=== PATIENT | female | born 1975 | race African-American/Black ===

== ENCOUNTER → 2021-07-05 12:16 | Outpatient (CLI) | payer OTHER, SELFPAY ==
--- NOTE | 2021-07-05 | DI.MG.S_ITS ---
BILATERAL DIGITAL SCREENING MAMMOGRAM 3D/2D WITH CAD: 07/05/2021 CLINICAL: Routine screening. Baseline exam. No prior exams were available for comparison. The tissue of both breasts is heterogeneously dense. This may lower the sensitivity of mammography. Current study was also evaluated with a Computer Aided Detection (CAD) system. There is a possible oval focal asymmetry in the right breast at 9 o'clock posterior depth. No other significant masses, calcifications, or other findings are seen in either breast. IMPRESSION: INCOMPLETE: NEEDS ADDITIONAL IMAGING EVALUATION The possible oval focal asymmetry in the right breast is indeterminate. A diagnostic mammogram and ultrasound is recommended. This exam was interpreted at Station ID: [id number]. NOTE: For mammograms, a report in lay terms will be sent to the patient. Approximately 15% of breast malignancies will not be visualized mammographically. In the management of a palpable breast mass, a negative mammogram must not discourage biopsy of a clinically suspicious lesion. Electronically Signed By: Pardeep pelayo/ridge:07/05/2021 13:03:51 letter sent: Additional Imaging Needed ACR BI-RADS Category 0: Incomplete 3340F
== END ==
PROVIDERS: PCP Family Medicine; Referring Provider Family Medicine; Visit Provider Family Medicine
DX: Z12.31 Encounter for screening mammogram for malignant neoplasm of breast (principal)
CPT/HCPCS: 77063; 77067

== ENCOUNTER → 2021-08-25 14:06 | Outpatient (CLI) | payer OTHER, SELFPAY ==
--- NOTE | 2021-08-25 | DI.MG.S_ITS ---
UNILATERAL RIGHT DIGITAL DIAGNOSTIC MAMMOGRAM 3D/2D WITH ADDITIONAL VIEWS: 08/25/2021 CLINICAL: Additional evaluation requested from prior study. Comparison is made to exam dated: 07/05/2021 [facility]. The tissue of right breast is heterogeneously dense. This may lower the sensitivity of mammography. There is an oval low density focal asymmetry with an indistinct and circumscribed margin in the right breast at 12 o'clock posterior depth. This is less prominent on additional views. No other significant masses or calcifications are seen in the breast. IMPRESSION: INCOMPLETE: NEEDS ADDITIONAL IMAGING EVALUATION The oval low density focal asymmetry in the right breast is indeterminate. An ultrasound is recommended. Ultrasound will be performed immediately following the current exam. This exam was interpreted at Station ID: [id number]. NOTE: For mammograms, a report in lay terms will be sent to the patient. Approximately 15% of breast malignancies will not be visualized mammographically. In the management of a palpable breast mass, a negative mammogram must not discourage biopsy of a clinically suspicious lesion. Electronically Signed By: Mark Patel M.D. ddlivier/:08/25/2021 14:47:25 ACR BI-RADS Category 0: Incomplete 3340F
--- NOTE | 2021-08-25 | DI.US.S_ITS ---
LIMITED ULTRASOUND OF RIGHT BREAST: 08/25/2021 CLINICAL: Patient returns today to evaluate an asymmetry in the right breast. Comparison is made to exams dated: 07/05/2021 mammogram and 08/25/2021 mammogram - [facility]. Real-time ultrasound of the right breast 6 o'clock, 12 o'clock, and retroareolar central to the nipple regions was performed on the area of interest. No discrete cystic or solid mass lesion identified in the area of mammographic abnormality. IMPRESSION: NEGATIVE There is no sonographic evidence of malignancy. There are no abnormalities seen in the right breast to correspond with the mammography finding at 6, 12 o'clock, or central to the nipple. The mammographic finding was decreased on additional views and likely represented superimposition of fibroglandular tissue. A 1 year screening mammogram is recommended. This exam was interpreted at Station ID: [id number]. Electronically Signed By: Mark Patel M.D. ddp/:08/25/2021 15:40:21 letter sent: Normal Exam Ultrasound BI-RADS: 1 Negative
== END ==
PROVIDERS: PCP Family Medicine; Referring Provider Family Medicine; Visit Provider Family Medicine
DX: R92.8 Other abnormal and inconclusive findings on diagnostic imaging of breast (principal); N64.89 Other specified disorders of breast
CPT/HCPCS: 76642; 77065; G0279

== ENCOUNTER → 2022-01-09 16:41 | Outpatient (CLI) | payer OTHER, SELFPAY ==
[2022-01-09 19:02] LABS: Follicle Stimulating Hormone 13.2 mIU/mL
[2022-01-09 19:05] LABS: Prolactin 16.8 ng/mL (3.0-18.6)
[2022-01-13 12:14] LABS: Anti Mullerian Hormone <0.015 ng/mL (.)
== END ==
PROVIDERS: PCP Family Medicine; Referring Provider Obstetrics & Gynecology; Visit Provider Obstetrics & Gynecology
DX: Z31.69 Encounter for other general counseling and advice on procreation (principal)
CPT/HCPCS: 36415; 82397; 83001; 84146

== ENCOUNTER → 2022-02-25 14:49 | Outpatient (CLI) | payer OTHER, SELFPAY ==
--- NOTE | 2022-02-25 15:38 | DI.MRI.S_ITS ---
PROCEDURE: MR PELVIS WO/W CON INDICATIONS: Large Fibroids, pelvic pain TECHNIQUE: Coronal HASTE, sagittal breath-hold T2 FSE; axial T1 FSE with and without fat saturation through the pelvis. Optional long- and short-axis uterine nonbreath-hold T2 FSE through the uterus. Sagittal or axial dynamic VIBE during administration of contrast. Post-contrast axial or coronal VIBE/2-D FLASH with fat saturation from the iliac crests to the symphysis. Optional diffusion weighted imaging and ADC may be performed. COMPARISON: Ultrasound 01/09/2022 FINDINGS: Image quality: Excellent. Uterus: Enlarged uterus with numerous fibroids. The largest fibroid is in the right fundal region (FIGO 2-5) measuring 6.2 x 7.8 cm (24/44), with small areas of necrosis. Right lower uterine segment fibroid (FIGO 2) measures 3.6 x 3.2 cm. There are a few adjacent smaller vital to, and FIGO 3 fibroids. The endometrial stripe is not thickened. The junctional zone is difficult to visualize in the presence of numerous fibroids. Adnexa: Right ovary is not enlarged. Follicles in the left ovary, and a 18 x 18 mm T1 hyperintense cystic lesion. Urinary system: Bladder is under distended. No distal ureter dilation. Nodes and vessels: No pelvic or inguinal adenopathy by size criteria. Iliac vessels are normal in size. Bowel and peritoneum: No pathologic free pelvic fluid. Inferior colon and small bowel loops are normal in caliber. Soft tissues: No inguinal hernias. No findings of pelvic floor incompetence in the absence of provocation. Bones: Marrow demonstrates normal overall signal. IMPRESSION: Fibroid uterus, with the largest fibroid in the right fundal region (FIGO 2-5) measuring up to 7.8 cm, with small areas of necrosis. A few FIGO 2 and FIGO 3 fibroids are noted in the mid and lower uterus. Index fibroid in the right lower uterine segment is FIGO 2, measuring up to 3.6 cm. 18 x 18 mm T1 hyperintense left ovarian cystic lesion is probably a hemorrhagic cyst, for which no dedicated follow-up imaging is necessary in a premenopausal woman. Differential includes endometrioma. Dictated by: Florentino De Luna M.D. on 02/27/2022 at 8:53 Approved by: Florentino De Luna M.D. on 02/27/2022 at 9:07
== END ==
PROVIDERS: PCP Family Medicine; Referring Provider Family Medicine; Visit Provider Family Medicine
DX: D25.1 Intramural leiomyoma of uterus (principal); D25.0 Submucous leiomyoma of uterus; D25.2 Subserosal leiomyoma of uterus
CPT/HCPCS: 72197

== ENCOUNTER → 2022-03-24 16:18 | Outpatient (CLI) | payer OTHER, SELFPAY ==
[2022-03-24 16:59] LABS: Add Manual Diff / Slide Review NO; Basophils Absolute Auto 0 /uL (0-100); Basophils Percent Auto 0.7 % (0-2); Eosinophils Absolute Auto 100 /uL (0-450); Hematocrit 44.3 % (36-46); Lymphocytes Absolute Auto 1300 /uL (1100-4500); Lymphocytes Percent Auto 20.9 % (25-40); Mean Corpuscular HGB Conc 33.9 % (30-36); Mean Corpuscular Hemoglobin 34.2 PG (26-34); Mean Corpuscular Volume 100.9 fL (80-100); Monocytes Absolute Auto 600 /uL (0-900); Monocytes Percent Auto 9.1 % (3-14); Neutrophils Absolute Auto 4100 /uL (1500-7000); Neutrophils Percent Auto 67.3 % (50-75); Platelet Count 214 X10^3/uL (150-400); Red Blood Cell Count 4.39 X10^6/uL (4.0-5.2); Red Cell Distribution Width 14.1 % (11.6-14.8); White Blood Cell Count 6.1 X10^3/uL (4.5-11.0)
[2022-03-24 17:42] LABS: Alanine Aminotransferase 37 IU/L (<35); Albumin 4.5 g/dL (3.5-5.0); Albumin Globulin Ratio 1.3 (1.0-2.8); Alkaline Phosphatase 76 U/L (38-126); Aspartate Aminotransferase 44 IU/L (14-36); BUN Creatinine Ratio 10.5 (6-22); Bilirubin Total 0.6 mg/dL (0.2-1.3); Blood Urea Nitrogen 8 mg/dL (7-17); Calcium 9.4 mg/dL (8.4-10.2); Carbon Dioxide 29 mmol/L (22-32); Chloride 98 mmol/L (98-107); Cholesterol 229 mg/dL (140-199); Estimated Glomerular Filt Rate > 60 mL/min (>60); Globulin 3.6 g/dL (1.7-4.1); Glucose 132 mg/dL (70-100); HEMOLYSIS < 15 (0-50); Potassium 3.9 mmol/L (3.4-5.1); Sodium 134 mmol/L (137-145); Total Protein 8.1 g/dL (6.3-8.2); Triglycerides 71 mg/dL (35-150)
[2022-03-24 18:01] LABS: Follicle Stimulating Hormone 26.1 mIU/mL
[2022-03-24 18:02] LABS: HDL Cholesterol 139 mg/dL (40-60); LDL Cholesterol Calculated 76 mg/dL (<100); Vitamin D 25 Hydroxy (D3) 46.3 ng/mL (30.0-100.0)
[2022-03-24 18:10] LABS: TSH w/ Reflex to FT4 0.98 uIU/mL (0.47-4.68)
[2022-03-24 18:11] LABS: TSH w/ Reflex to FT4 0.99 uIU/mL (0.47-4.68)
[2022-03-24 18:17] LABS: Estradiol, Total 26.1 pg/mL
== END ==
PROVIDERS: PCP Family Medicine; Referring Provider Obstetrics & Gynecology; Visit Provider Obstetrics & Gynecology
DX: Z31.69 Encounter for other general counseling and advice on procreation (principal); N92.6 Irregular menstruation, unspecified; D21.9 Benign neoplasm of connective and other soft tissue, unspecified; D64.9 Anemia, unspecified; E55.9 Vitamin D deficiency, unspecified; R03.0 Elevated blood-pressure reading, without diagnosis of hypertension
CPT/HCPCS: 36415; 80053; 80061; 82306; 82670; 83001; 84443; 85025

== ENCOUNTER 2023-12-30 08:07 | Emergency (ER) | payer OTHER, MEDICAID, SELFPAY ==
[2023-12-30] VITALS (30 sets, daily range): BP systolic 107–206; BP diastolic 55–143; PULSE 77–113; RESP 16–20; TEMP 37; O2SAT 87–100; BMI 32.4
--- NOTE | 2023-12-30 08:22 | DI.RAD.S_ITS ---
PROCEDURE: XR ANKLE LT MIN 3V INDICATIONS: left ankle pain TECHNIQUE: 3 views of the ankle were acquired. COMPARISON: None. FINDINGS: Bones: Oblique fracture of the distal fibula at the level of the syndesmosis. Probable fracture of the posterior malleolus. Possible fracture of the medial malleolus. There is lateral displacement of the talus in relation to the tibia. Ankle mortise is normally aligned. No suspicious bony lesions. Calcaneal spur. Soft tissues: No tibiotalar joint effusion. Achilles tendon appears normal. IMPRESSION: Dislocation of the tibiotalar joint. Fracture of the distal fibula. Probable fracture of the posterior malleolus. Dictated by: Edson Pettit M.D. on 12/30/2023 at 9:15 Approved by: Edson Pettit M.D. on 12/30/2023 at 9:18
--- NOTE | 2023-12-30 08:49 | ED_ITS ---
HPI - Extremity Injury (Lower) General Chief Complaint: Extremity Injury, Lower Stated Complaint: Fall, L ankle injury Time Seen by Provider: 12/30/23 08:22 Source: patient and EMS Mode of arrival: EMS History of Present Illness HPI Narrative: 48-year-old female with no prior surgical history, was walking her dog this morning proximally 30, stepped down a drainage like pipe area, lost her footing, slipped, fell, twisted her ankle badly, had assistance from bystander to call 911, arrived by ambulance in splinted left lower extremity ankle, some lateral rotation position, able to feel her toes and feet. She denies pain to her proximal left foreleg, knee, thigh, hip. She had no other injuries. She denied hitting her head, no loss of consciousness. She does not take blood thinner medications. She denies headache, neck pain, back pain, chest pain, abdomen pelvic pain. She also denies pain to her upper extremities, and to her right lower extremity. Related Data Previous Rx's Medication Instructions Recorded naproxen 500 mg tablet 500 mg PO BID 7 days #14 tabs 12/30/23 Allergies Allergy/AdvReac Type Severity Reaction Status Date / Time No Known Drug Allergies Allergy Unverified 01/09/22 16:06 Patient History Medical History (Updated 12/30/23 @ 11:44 by Parish Garcia MD) Elevated liver enzymes Hyperglycemia Vitamin D deficiency Alopecia (~2016) Anemia (~2014) Painful menstrual periods (~08/2012) Fibroids (~07/2014) Family History Father Diabetes mellitus Hypertension Brother No problems noted. Grandfather History of heart disease Grandmother History of heart disease Grandmother History of heart disease Social History Smoking Status: Never smoker Smoking Status: Never smoker alcohol intake frequency: 3 or more drinks per day Substance Use Type: does not use Exam Narrative Exam Narrative: GENERAL: Well-developed patient, in mild distress. HEAD: Atraumatic. Normocephalic. EYES: Pupils equal round and reactive. Extraocular motions intact. No scleral icterus. No injection or drainage. ENT: Nose without bleeding, purulent drainage. Throat without erythema, tonsillar hypertrophy or exudate. Airway patent. NECK: Trachea midline. Non tender CARDIOVASCULAR: Regular rate and rhythm without murmurs, gallops, or rubs. RESPIRATORY: Clear to auscultation. Breath sounds equal bilaterally. No wheezes, rales, or rhonchi. GASTROINTESTINAL: Abdomen soft, non-tender, nondistended. EXTREMITIES: EMS splint in place, intact to light touch toes medial and lateral, dorsalis pedis pulse palpable, good cap refill toes. Some lateral rotational deformity, no laceration, no open wounds. Some plant/dirt debris on her pants, no skin abrasions obvious. No tenderness to her mid upper left foreleg, knee, patella, thigh, hip. No gross deformities, with normal range of motion bilateral upper extremities, and with right lower extremity. BACK: Nontender without deformity or crepitance. No flank tenderness. NEURO: AOx3. SKIN: No rash or erythema of visible areas Initial Vital Signs Initial Vital Signs: Vital Signs Temperature 98.6 F 12/30/23 08:15 Pulse Rate 77 12/30/23 08:15 Respiratory Rate 20 12/30/23 08:15 Blood Pressure 107/55 L 12/30/23 08:15 Pulse Oximetry 99 12/30/23 08:15 Oxygen Delivery Method Room Air 12/30/23 08:15 Procedures Orthopedic Fracture Reduction Fracture #1: Time of procedure: 10:55 Time Out Performed: Yes Side: left Fracture Reduction Location: fibula Analgesia: procedural sedation Post Reduction X-rays Demonstrate: acceptable reduction Post-reduction neuro exam: intact Post-reduction vascular exam: intact Splint Applied: Yes Patient Tolerated Procedure: Well Procedural Sedation Consent signed: Yes Time out performed: Yes Indication: fracture/dislocation reduction ASA Class: I Mallampati Airway Classification: Class I Time of Last PO Intake: 08:00 IV Propofol dose (mg): 200 ED Sedation Level: Moderate (Concious) Patient Tolerated Procedure: Well and No complications Complications: none Course Orders Ordered: Discontinued Medications Hydromorphone HCl (Hydromorphone 0.5 Mg Inj) 0.5 mg IV NOW ONE Stop: 12/30/23 09:35 Last Admin: 12/30/23 11:23 Dose: Not Given Documented By: AAYUSH Ondansetron HCl (Ondansetron 4 Mg/2 Ml Inj) 4 mg IV NOW ONE Stop: 12/30/23 09:35 Last Admin: 12/30/23 12:12 Dose: Not Given Documented By: AAYUSH Tramadol HCl (Tramadol 50 Mg Prepack) 1 bottle MISC DIRECTED ONE Stop: 12/30/23 10:00 Last Admin: 12/30/23 12:12 Dose: 1 bottle Documented By: AAYUSH Tramadol HCl (Tramadol 50 Mg Tablet) 50 mg PO NOW ONE Stop: 12/30/23 11:21 Last Admin: 12/30/23 11:29 Dose: 50 mg Documented By: AAYUSH Vital Signs Vital signs: Vital Signs - 8 hr 12/30/23 08:15 12/30/23 08:19 12/30/23 08:24 Temperature 98.6 F Pulse Rate 77 89 Respiratory Rate 20 Blood Pressure 107/55 L 204/111 H 168/109 H Pulse Oximetry 99 88 L 87 L Oxygen Delivery Method Room Air 12/30/23 08:30 12/30/23 08:30 12/30/23 09:00 Temperature Pulse Rate 80 90 Respiratory Rate Blood Pressure 187/107 H Pulse Oximetry 88 L 93 Oxygen Delivery Method 12/30/23 09:00 12/30/23 09:30 12/30/23 09:30 Temperature Pulse Rate 91 H Respiratory Rate Blood Pressure 200/94 H 188/100 H Pulse Oximetry 91 Oxygen Delivery Method 12/30/23 10:00 12/30/23 10:20 12/30/23 10:20 Temperature Pulse Rate 96 H 94 H Respiratory Rate 16 17 Blood Pressure 191/112 H Pulse Oximetry 100 100 Oxygen Delivery Method 12/30/23 10:22 12/30/23 10:22 12/30/23 10:25 Temperature Pulse Rate 101 H 105 H Respiratory Rate 20 Blood Pressure 205/111 H Pulse Oximetry 99 99 Oxygen Delivery Method 12/30/23 10:25 12/30/23 10:30 12/30/23 10:30 Temperature Pulse Rate 103 H Respiratory Rate Blood Pressure 176/105 H 181/101 H Pulse Oximetry 100 Oxygen Delivery Method 12/30/23 10:35 12/30/23 10:35 12/30/23 10:40 Temperature Pulse Rate 106 H 103 H Respiratory Rate Blood Pressure 184/107 H Pulse Oximetry 100 100 Oxygen Delivery Method 12/30/23 10:40 12/30/23 10:45 12/30/23 10:45 Temperature Pulse Rate 100 H Respiratory Rate 20 Blood Pressure 176/97 H 205/113 H Pulse Oximetry Oxygen Delivery Method 12/30/23 10:45 12/30/23 10:50 12/30/23 10:50 Temperature Pulse Rate 113 H 91 H Respiratory Rate Blood Pressure 190/100 H Pulse Oximetry 100 99 Oxygen Delivery Method 12/30/23 10:55 12/30/23 10:55 12/30/23 11:00 Temperature Pulse Rate 95 H 93 H Respiratory Rate Blood Pressure 186/111 H Pulse Oximetry 99 99 Oxygen Delivery Method MDM - Extremity Injury (Lower) Imaging Data Extremity x-ray #1: Radiologist's Impression: [address] [address] XRay Report Signed Patient: Geraldine Morgan MR#: [id number] : 1975 Acct:[id number] Age/Sex: 48 / F Date of Service: 12/30/23 Loc: ED Accession Number: [id number] Procedure: XR ankle LT min 3V Ordering Provider: Parish Garcia MD PROCEDURE: XR ANKLE LT MIN 3V INDICATIONS: left ankle pain TECHNIQUE: 3 views of the ankle were acquired. COMPARISON: None. FINDINGS: Bones: Oblique fracture of the distal fibula at the level of the syndesmosis. Probable fracture of the posterior malleolus. Possible fracture of the medial malleolus. There is lateral displacement of the talus in relation to the tibia. Ankle mortise is normally aligned. No suspicious bony lesions. Calcaneal spur. Soft tissues: No tibiotalar joint effusion. Achilles tendon appears normal. IMPRESSION: Dislocation of the tibiotalar joint. Fracture of the distal fibula. Probable fracture of the posterior malleolus. Dictated by: Edson Pettit M.D. on 12/30/2023 at 9:15 Approved by: Edson Pettit M.D. on 12/30/2023 at 9:18 Extremity x-ray #2: Radiologist's Impression: [address] [address] XRay Report Signed Patient: Geraldine Morgan MR#: [id number] : 1975 Acct:[id number] Age/Sex: 48 / F Date of Service: 12/30/23 Loc: ED Accession Number: [id number] Procedure: XR ankle LT min 3V Ordering Provider: Parish Garcia MD PROCEDURE: XR ANKLE LT MIN 3V INDICATIONS: post reduction TECHNIQUE: 3 views of the ankle were acquired. COMPARISON: [facility], CR, XR ANKLE LT MIN 3V, 12/30/2023, 8:24. FINDINGS: Bones: Overlying cast obscures the fine osseous and soft tissue detail. There is improved alignment of the tibiotalar joint. There is redemonstration of distal fibula fracture with moderate posterior displacement of the distal fracture fragment. Possible posterior malleolar fracture. Soft tissues: No significant tibiotalar joint effusion. IMPRESSION: Status post reduction and interval casting of tibiotalar joint dislocation with improved alignment. Redemonstration of moderately displaced distal fibular fracture. Query posterior malleolar fracture. Approved by: Estelle Mock M.D.,Ph.D. on 12/30/2023 at 10:18 MDM Narrative Medical decision making narrative: Fall with twist injury, left ankle swelling and pain, arrival with splinting by EMS. No pain medications EN route, feels better after splinting. X-rays requested of left ankle Left ankle x-ray shows tibiotalar dislocation with distal fibular fracture, possible posterior malleolus component fracture, see radiology report. Patient consented for left ankle joint/fracture reduction, see separate notes, IV propofol, tolerated well, post reduction x-rays improved, mortise view not widened any longer, better fibular fracture fragment position. Follow up with Orthopedic surgery, for likely ORIF. P.o. tramadol dose, tramadol prepack for discharge Case discussed with orthopedic surgery Dr. Hough, patient information relayed, call their office on Sunday to further clarify OR surgical repair slot, contact information provided for discharge. They will also attempt to contact the patient on Sunday as well. Improved, analgesics discussed, tramadol prepack to use if needed. Patient seems pretty comfortable in her splint thus far. Critical Care Time Critical Care Time Critical Care Time: Yes Total Critical Care Time: 35 Attestation: The high probability of a clinically significant, sudden or life threatening deterioration of the [musculoskeletal, orthopedic] system(s) required my full and direct attention, intervention and personal management. The aggregate critical care time was [35] minutes. This time is in addition to time spent performing reported procedures but includes the following: [x] Data Review and interpretation [x] Patient assessment and monitoring of vital signs [x] Documentation [x] Medication orders and management Discharge Plan Departure Patient Disposition: Home Clinical Impression: Closed fibular fracture, Dislocation of ankle joint Activity Restrictions/Additional Instructions: Ground level fall with left ankle pain, transfer by EMS in splint, some lateral rotational deformity, no laceration, joint appeared close, good pulses and neurovascular status. X-ray showed dislocation of the tibiotalar joint, also a displaced angulated distal fibula bony fracture. Sedation was used for reduction and splinting, improved position. Follow up with Orthopedic surgery for likely surgical definitive repair. Take pain medications as directed. Contact information given for local Dr Hough orthopedic surgery. They will call you on Sunday, but it would be prudent also to call their office on Sunday to discuss surgical repair timing. Return to this/nearest emergency department for any change worsening symptoms or any concerns prior Prescriptions: New naproxen 500 mg tablet 500 mg PO BID 7 Days Qty: 14 0RF Referrals: Brent Frost MD [Primary Care Provider] - Rory Hough MD [Physician] - Stand Alone Forms: Patient Portal/API
[2023-12-30] MEDS: propofoL 200 MG/20 ML VIAL IV (10:19)
--- NOTE | 2023-12-30 10:42 | DI.RAD.S_ITS ---
PROCEDURE: XR ANKLE LT MIN 3V INDICATIONS: post reduction TECHNIQUE: 3 views of the ankle were acquired. COMPARISON: [facility], CR, XR ANKLE LT MIN 3V, 12/30/2023, 8:24. FINDINGS: Bones: Overlying cast obscures the fine osseous and soft tissue detail. There is improved alignment of the tibiotalar joint. There is redemonstration of distal fibula fracture with moderate posterior displacement of the distal fracture fragment. Possible posterior malleolar fracture. Soft tissues: No significant tibiotalar joint effusion. IMPRESSION: Status post reduction and interval casting of tibiotalar joint dislocation with improved alignment. Redemonstration of moderately displaced distal fibular fracture. Query posterior malleolar fracture. Approved by: Estelle Mock M.D.,Ph.D. on 12/30/2023 at 10:18
--- NOTE | 2023-12-30 11:12 | PC.NURSE ---
Prior to sedation pt placed on product safety test engineer, ETCO2, and bp set q5 mins. Time out called at 1019 and 40mg of propofol pushed by Dr Garcia. Pt c/o moderate amount of pain during procedure and proprfol pushed at 20mg increments by Dr. Garcia until pt reached optimal sedation level as per provider for reduction. Pt tolerated procedure well and is now A&Ox4.
[2023-12-30] MEDS: TRAMADOL 50 MG TABLET PO (11:29)
[2023-12-30] MEDS: TRAMADOL 50 MG PREPACK 1 BOTTLE MISC (12:12)
== END 2023-12-30 12:35 | disposition home or self-care (01) ==
PROVIDERS: Emergency Provider Emergency Medicine; PCP Family Medicine
DX: S82.832A Other fracture of upper and lower end of left fibula, initial encounter for closed fracture (principal); S93.05XA Dislocation of left ankle joint, initial encounter; W17.89XA Other fall from one level to another, initial encounter; Y93.K1 Activity, walking an animal
CPT/HCPCS: 27788; 73610; 99152; 99283; 99285; J2704

== ENCOUNTER 2024-01-09 11:45 | Day surgery (SDC) | payer OTHER, MEDICAID, SELFPAY ==
[2024-01-08 10:31] VITALS: BMI 33.7
[2024-01-09] VITALS (11 sets, daily range): BP systolic 145–178; BP diastolic 62–116; PULSE 79–101; RESP 12–16; TEMP 35.6–36.9; O2SAT 92–100; BMI 33.7
--- NOTE | 2024-01-09 | DI.RAD.S_ITS ---
PROCEDURE: XR ANKLE LT MIN 3V INDICATIONS: ORIF ANKLE FRACTURE DISLOCATION LEFT TECHNIQUE: Multiple intraoperative views of the ankle were acquired. COMPARISON: [facility], CR, XR ANKLE LT MIN 3V, 12/30/2023, 10:40. [facility], CR, XR ANKLE LT MIN 3V, 12/30/2023, 8:24. FINDINGS: Bones: Multiple intraoperative views during ankle fracture ORIF IMPRESSION: Multiple intraoperative views during ankle fracture ORIF. Dictated by: Quincy Aranda M.D. on 01/09/2024 at 15:53 Approved by: Quincy Aranda M.D. on 01/09/2024 at 15:53
[2024-01-09] MEDS: ACETAMINOPHEN 325 MG TABLET 975 MG PO (13:05)
[2024-01-09] MEDS: LACTATED RINGERS 1,000 ML 42 ML IV ×2 (13:30→14:59)
[2024-01-09] MEDS: SCOPOLAMINE 1 PATCH TOP (13:30)
--- NOTE | 2024-01-09 13:31 | PM.PREOP ---
Pre-operative Note Interval Note History & Physical reviewed/Exam performed by Physician: Yes Changes to H&P: No H&P completed within 30 days and has changed as indicated here:: The patient requires outpt/bed/obs postop for social situation
--- NOTE | 2024-01-09 13:38 | SUR.OPER ---
Supine on padded OR bed, head on pillow, arms secured on padded arm boards at <90 degrees abduction, legs uncrossed, operative leg draped free resting on stack of blankets. non op leg taped to bed. safety belt at thigh
--- NOTE | 2024-01-09 13:44 | SUR.PREOP ---
Block start time [1330] . Monitoring initiated and maintained throughout procedure. Oxygen and medications given per anesthesiologist instructions. Patient remained stable throughout procedure, no adverse reactions noted. Block end time [1345].
[2024-01-09] MEDS: CEFAZOLIN 2 GM/100 ML PREMIX 100 ML IV (14:00)
[2024-01-09] MEDS: BUPIVACAINE 0.25% (PF) 30 ML, EPINEPHrine 0.15 MG INJ (14:16)
--- NOTE | 2024-01-09 15:51 | PM.OP.1 ---
Operative Date/Time/Diagnoses Date of procedure: 01/09/24 Time of procedure: 14:20 Pre-op diagnosis: Left ankle fracture dislocation Post-op diagnosis: same (Disruption ankle syndesmosis) Procedure & Clinicians Procedure: 1. Open reduction internal fixation distal fibula, left CPT code 45204 2. Open reduction internal fixation syndesmosis ankle left CPT code 54256 3. Closed treatment posterior malleolus fracture left ankle CPT code 03448 Same procedure as scheduled: Yes Indications: Patient was a 48-year-old female slipped down a hill and sustained a left ankle fracture dislocation. She had a closed reduction in the emergency department. She had an unstable pattern ankle fracture involving her distal fibula her posterior malleolus and a syndesmotic disruption. She was indicated for operative fixation to restore alignment and reduce the risk of prolonged dysfunction and posttraumatic arthritis. The risks and benefits of the procedure have been discussed with the patient and given the opportunity to ask questions. The risks of surgery include but are not limited to infection, malunion, nonunion, persistence of pain, damage to nerves and blood vessels, posttraumatic arthritis, DVT, PE, cardiopulmonary complications and . The patient expressed a thorough understanding of the risks and benefits of surgery and has elected to proceed. Consent was signed. Surgeon: Blanquita Astorga Click Yes if Unassisted: Yes Anesthesia Type: General, Peripheral nerve block and Local Operative Notes Findings: Displaced long oblique fibula fracture at the level of the syndesmosis. Mildly displaced posterior malleolus fracture. Disrupted syndesmosis. After reduction and fixation of the distal fibula and syndesmotic fixation posterior malleolus fracture was noted to be in acceptable alignment and was treated closed. Closure Type: primary Prosthetic devices, grafts, tissues, transplants, or devices: Arthrex 7 hole 1/3 tubular locking plate. 2x3.5 locking screws distally. 3x3.5 nonlocking screws proximally. One syndesmotic tightrope XP 1x 2.7 x 22 mm cortical lag screw Estimated Blood Loss (mL): 20 Blood products transfused: none Tourniquet time (min): 48 Procedure in detail: The patient was seen in the preoperative area the site of surgery marked informed consent confirmed. The patient was brought back to the operative room by the anesthesia team. A regional block was placed for postoperative pain control. Patient was positioned supine. A ipsilateral thigh bump was applied. Bony prominences well padded. A well-padded thigh tourniquet was applied. Patient was draped and draped in standard sterile fashion. Attention was turned to the left leg. The Esmarch was used for exsanguination. The tourniquet was elevated to 250 mm of mercury. Attention was turned to the lateral left ankle. A incision along the posterior aspect of the distal fibula was made down through the skin subcutaneous tissue. The border between the peroneal tendon sheath and the fibula was demonstrated. The peroneal tendon sheath was opened. The peroneal tendons were reflected posteriorly. Periosteal dissection was taken along the fibula the long oblique fracture was identified. There was some soft callus to the age fracture this was debrided using rongeur. The fracture was mobilized with a curette and blades. Anteriorly the syndesmosis was noted to be disrupted. Fracture was mobilized and then reduced and held with clamps. C-arm was brought in to confirm length and alignment. A 2.7 lag screw was applied across the fracture. Then a 7 hole 1/3 tubular locking cable plate from the Arthrex set was utilized as an antiglide type plate. This was secured proximally and then distally with locking screws to reduce prominence. Next using some pressure the syndesmosis was reduced and pinned provisionally. This was checked for appropriate alignment in AP mortise and lateral views. The tightrope Xp was drilled across in a slight ankle posterior to anterior direction. The tightrope Xp was deployed. A small counter incision was made medially to make sure this sat appropriately on the bone. This was then tightened provisionally. The wire was removed and final tightening was completed. X-rays were taken in AP mortise and lateral confirming appropriate alignment. And then a separate syndesmotic stress was performed again after syndesmotic fixation noted stability. Tourniquet was released hemostasis was achieved. Wounds were closed with 2-0 Vicryl 4-0 Monocryl and 3-0 nylon suture. Local anesthetic with 0.25% Marcaine and epinephrine was injected. And a sterile dressing with Xeroform gauze Webril and a posterior and U splint was applied in neutral dorsiflexion. Patient was awoken from anesthesia and taken to recovery room in good condition. There were no immediate complications from this procedure. All counts were correct. Complications: none Post-operative Condition: stable Disposition: observation Plan for aftercare: Nonweightbearing or touchdown for balance x6 weeks. Patient lives alone and does not have anyone to stay with her after general anesthetic so will be admitted for outpatient was better observation status regarding this and plan discharge home tomorrow. She will use aspirin for DVT prophylaxis starting tomorrow for 6 weeks. She will follow up in 2 weeks for suture removal and the placement of a walking boot and start early range of motion, and a physical therapy prescription will be issued. She will follow up 6 weeks after surgery for repeat x-rays and initiation of weight-bearing.
[2024-01-09] MEDS: OXYCODONE IR 5 MG TABLET PO (17:02)
[2024-01-09] MEDS: ACETAMINOPHEN 325 MG TABLET 650 MG PO (17:03)
[2024-01-09] MEDS: SENNOSIDES 8.6 MG TABLET 17.2 MG PO (20:07)
[2024-01-09] MEDS: SODIUM CHLORIDE 0.9% FLUSH 10 ML IV (20:08)
[2024-01-10] VITALS: BP 142/90; PULSE 88; RESP 18; TEMP 35.8; O2SAT 97
[2024-01-10 04:49] LABS: Hematocrit 42.8 % (36-46); Hemoglobin 14.8 g/dL (12.0-16.0); Mean Corpuscular HGB Conc 34.5 % (30-36); Mean Corpuscular Hemoglobin 34.4 PG (26-34); Mean Corpuscular Volume 99.6 fL (80-100); Platelet Count 278 X10^3/uL (150-400); Red Cell Distribution Width 13.3 % (11.6-14.8); White Blood Cell Count 10.2 X10^3/uL (4.5-11.0)
--- NOTE | 2024-01-10 07:01 | PM.DS.1 ---
History of Present Illness History of Present Illness Date Patient Seen: 01/10/24 Time Patient Seen: 07:01 Chief complaint: Left ORIF Ankle Fracture Narrative: Operative Date/Time/Diagnoses Date of procedure: 01/09/24 Time of procedure: 14:20 Pre-op diagnosis: Left ankle fracture dislocation Post-op diagnosis: same (Disruption ankle syndesmosis) Procedure & Clinicians Procedure: 1. Open reduction internal fixation distal fibula, left CPT code 76736 2. Open reduction internal fixation syndesmosis ankle left CPT code 99900 3. Closed treatment posterior malleolus fracture left ankle CPT code 13801 Same procedure as scheduled: Yes Indications: Patient was a 48-year-old female slipped down a hill and sustained a left ankle fracture dislocation. She had a closed reduction in the emergency department. She had an unstable pattern ankle fracture involving her distal fibula her posterior malleolus and a syndesmotic disruption. She was indicated for operative fixation to restore alignment and reduce the risk of prolonged dysfunction and posttraumatic arthritis. The risks and benefits of the procedure have been discussed with the patient and given the opportunity to ask questions. The risks of surgery include but are not limited to infection, malunion, nonunion, persistence of pain, damage to nerves and blood vessels, posttraumatic arthritis, DVT, PE, cardiopulmonary complications and . The patient expressed a thorough understanding of the risks and benefits of surgery and has elected to proceed. Consent was signed. Surgeon: Blanquita Astorga Click Yes if Unassisted: Yes Anesthesia Type: General, Peripheral nerve block and Local Operative Notes Findings: Displaced long oblique fibula fracture at the level of the syndesmosis. Mildly displaced posterior malleolus fracture. Disrupted syndesmosis. After reduction and fixation of the distal fibula and syndesmotic fixation posterior malleolus fracture was noted to be in acceptable alignment and was treated closed. Closure Type: primary Prosthetic devices, grafts, tissues, transplants, or devices: Arthrex 7 hole 1/3 tubular locking plate. 2x3.5 locking screws distally. 3x3.5 nonlocking screws proximally. One syndesmotic tightrope XP 1x 2.7 x 22 mm cortical lag screw Estimated Blood Loss (mL): 20 Blood products transfused: none Tourniquet time (min): 48 Discharge Providers Provider Discharge Date: 01/10/24 Primary care physician: Brent Frost MD Consults: 01/09/24 15:59 Consult to Discharge Planning Routine Comment: Consult to Physical Therapy Evaluate & Treat Comment: Physician Instructions: Evaluate and Treat Discharge provider: Bhavna Clark PA-C Summary Hospital Course Discharge Diagnosis: Left ankle fracture dislocation, s/p ORIF of left distal fibula and syndesmosis and closed treatment of posterior malleolus Hospital Course: Ms Morgan'nona hospital course was unremarkable. On the morning of POD# 1, she was feeling well and wanted to go home. She was eating and voiding without difficulty and her pain was well-controlled with oral medication. Exam Vital Signs (past 8 hours): - 01/10/24 00:00 Temperature 96.5 F L Pulse Rate 88 Respiratory Rate 18 Blood Pressure 142/90 H Pulse Oximetry 97 Oxygen Flow Rate 0 Oxygen Delivery Method Room Air Oxygen Flow Rate 0 Narrative Exam Narrative: Pt able to wiggle toes without difficulty, sensation to touch intact distal and proximal to splint on LLE. No tight areas of splint are noted. Objective Labs 01/10/24 04:39 Labs: Laboratory Results - last 24 hr 01/10/24 04:39 WBC 10.2 RBC 4.30 Hgb 14.8 Hct 42.8 MCV 99.6 MCH 34.4 H MCHC 34.5 RDW 13.3 Plt Count 278 PFSH Medical History (Updated 12/30/23 @ 11:44 by Parish Garcia MD) Elevated liver enzymes Hyperglycemia Vitamin D deficiency Alopecia (~2016) Anemia (~2014) Painful menstrual periods (~08/2012) Fibroids (~07/2014) Family History Father Diabetes mellitus Hypertension Brother No problems noted. Grandfather History of heart disease Grandmother History of heart disease Grandmother History of heart disease Social History household members: none Smoking Status: Never smoker alcohol intake: current Discharge Assessment & Plan Assessment and Plan Assessment: Left ankle fracture dislocation, s/p ORIF of left distal fibula and syndesmosis and closed treatment of posterior malleolus Plan of Treatment: Discharge home, NWB to LLE x 6 weeks, f/u in office in 2 weeks as scheduled. Aspirin 325 mg daily for VTE prophylaxis. Discharge Plan Discharge Plan Patient Disposition: Home Provider Discharge Comment: Rxs sent to [facility] from office. Aspirin 325mg daily for VTE prophylaxis. Discharge orders & Medications Discharge Orders: Discharge (Order); Ordered 01/10/24 Ordered By: Bhavna Clark Prescriptions: Continued No Known Home Medications Follow up/Referrals: Brent Frost MD [Primary Care Provider] - Blanquita Astorga MD [Physician] - 01/23/24 3:10 pm (Follow up w/ Julius Marquez PA-C, at [facility] office in [place].) Diet/Activity/Treatments Diet: Diet as Tolerated Activity: Nonweightbearing or toe-touch only for balance on left foot. Skin/Wound/Dressing Care Report to your healthcare provider any signs of infection, such as:: chills, fever, night sweats, unusual drainage and unusual redness Dressing: May loosen MARY bandage and tear soft dressing underneath as needed if it feels too tight. Visit Report/Discharge Packet Instructions: DI for Open Reduction Internal Fixation Surgery, DI for Prescription Opioid Use Stand Alone Forms: Patient Portal/API, Surgery Discharge Discharge Data Primary Care Provider: Brent Frost Attending Provider: Blanquita Astorga VTE Deep Vein Thrombosis/Pulmonary Embolism Present on Admission: No
[2024-01-10 08:00] VITALS: BP 122/79; PULSE 88; RESP 16; TEMP 36; O2SAT 98
[2024-01-10] MEDS: SODIUM CHLORIDE 0.9% FLUSH 10 ML IV (08:19)
[2024-01-10] MEDS: ASPIRIN EC 325 MG TABLET PO (08:49)
--- NOTE | 2024-01-10 09:24 | PT.IIE ---
Current Diagnoses Other fracture of left lower leg, initial encounter for closed fracture (01/09/24) Dislocation of left ankle joint, initial encounter (01/09/24) Surgery Performed Operation Date: 01/09/24 13:30 Actual Procedures p ORIF Ankle Fracture dislocation, syndesmotic(Left) - Blanquita Astorga MD Medical History (Last Updated 04/18/22 @ 11:41 by Brent Frost MD) Alopecia (~2016) Anemia (~2014) Elevated liver enzymes Fibroids (~07/2014) Hyperglycemia Painful menstrual periods (~08/2012) Vitamin D deficiency Physical Therapy Inpatient Evaluation/Re-Eval M1 PT/OT-IP Prior Functional Status Start: 01/10/24 07:43 Freq: NEEDED Status: Active Protocol: Document 01/10/24 08:00 MB (Rec: 01/10/24 09:23 MB [id number]) Medical Review Prior Functional Status Medical History Reviewed Yes Diet/Fluid Consistency Regular Communication WNLs Mobility and Gait I, works part-time at [employer] Activities of Daily Living and IADL's I, lives in RV and has dog that she walks Social History Household Members none Living Arrangements RV Number of Floors (Floors) One Floor Number of Stairs To Enter/Railing? 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 Additional Social History Comment Pt has small BR in RV that is like an airplane BR per her report and she has been taking bird baths since her injury M2 PT-IP Current Condition Start: 01/10/24 07:43 Freq: NEEDED Status: Active Protocol: Document 01/10/24 08:00 MB (Rec: 01/10/24 09:23 [id number]) Physical Therapy Current Condition Current Condition Evaluation Date 01/10/24 Treatment Diagnosis Fall, left ankle fx and s/p ORIF M3 PT-IP Subjective Start: 01/10/24 07:43 Freq: NEEDED Status: Active Protocol: Document 01/10/24 08:00 MB (Rec: 01/10/24 09:23 [id number]) Subjective Physical Therapy Visit Type Type Initial Evaluation Visit Start Time 08:00 Visit Stop Time 08:40 Number of COMMERCIAL HVAC SERVICE TECHNICIAN Visits 0 Physical Therapy Visit Comments Patient Comments Pt is agreeable to PT. Therapy Pain Assessment Pain When Pain Assessed At Rest Pain Present Pain Present Denied Pain M4 PT-IP Mobility and Gait Start: 01/10/24 07:43 Freq: NEEDED Status: Active Protocol: Document 01/10/24 08:00 MB (Rec: 01/10/24 09:23 MB [id number]) PT-Bed Mobility Assessment Supine to Sit Supine to Sit Independent,1 Person Assistance Sit to Supine Sit to Supine Independent,1 Person Assistance Scooting Scooting to Edge of Bed Independent Scooting Up and Down in Bed Independent PT-Transfer Assessment Sit to and From Stand Sit to and from Stand Independent,Standby Assistance Equipment Transfer Assistive Device Gait Belt,Front Wheeled Walker ,Axillary Crutches Orthotic/Prosthetic Devices or Brace: No Transfers Transfer Destination Chair,Wheelchair Transfer Technique Hopping Transfer Ability Level of Assist Independent,Standby Assistance Comments Mobility Comments Instruction on hand placement and use of ADs for transfers and gait Gait Assessment Gait Gait Assistance Required: Independent,Standby Assistance Distance (Feet) 50 Able to Maintain Weight Bearing Status Yes During Gait Assistive Devices Assistive Device Gait Belt,Front Wheeled Walker ,Axillary Crutches Orthotic/Prosthetic Devices or Brace: No Comments Gait Comments Hop-to gait instructed with crutches and RW with 50'x1 with crutches, 50'x1 with RW and 20'x1 with RW Stair Climbing Assessment Comments Stair Climbing Comments Reviewed stair training options and pt opts for boosting up on the steps from sitting position and she has done this three times at home COMMERCIAL HVAC SERVICE TECHNICIAN with NWB LLE and deferred this a.m. in gown PT-Balance Assessment Sitting Balance and Reactions Static Sitting Balance Ability Normal Dynamic Sitting Balance Ability Normal Standing Balance and Reactions Static Standing Balance Ability Good Dynamic Standing Balance Ability Good Device Used RW and crutches M5 PT-IP Objective Assessments Start: 01/10/24 07:43 Freq: NEEDED Status: Active Protocol: Document 01/10/24 08:00 MB (Rec: 01/10/24 09:23 MB [id number]) Orientation Orientation/Cognition Level of Alertness Alert Orientation Name,Age,Birthday,Month,Date, Year,Day of Week,Place, Situation Language Function Ability No Deficits Noted Safety Awareness Understands Safety Issues Memory Description No Deficits Noted Gross Range of Motion Upper Extremity ROM Assessment Within Functional Limits Lower Extremity ROM Assessment Left Impaired Impairments L ankle immobilized in cast Strength Upper Extremity Strength Assessment Within Functional Limits Lower Extremity Strength Ankle L ankle in cast M6 PT-IP Treatment Start: 01/10/24 07:43 Freq: NEEDED Status: Active Protocol: Document 01/10/24 08:00 MB (Rec: 01/10/24 09:23 MB [id number]) Physical Therapy Treatment Education Education Provided Precautions,Weight Bearing Status,Safety M7 PT-IP Assessment and Plan Start: 01/10/24 07:43 Freq: NEEDED Status: Active Protocol: Document 01/10/24 08:00 MB (Rec: 01/10/24 09:23 MB [id number]) PT Summary Assessment and Plan Potential Rehabilitation Potential Good Status of Condition at Evaluation Stable Summary Impairments ROM,Strength,Balance,Bed Mobility,Transfers,Gait, Activity Tolerance Progress Towards Goals Progressing Toward Goals Assessment Summary Pt is a 48 y/o female who fell and fractured her left ankle. She underwent ORIF. She works part-time at [employer] and she lives in a RV with her dog. She will have some neighbor support at d/c. Pt demonstrates good use of RW and crutches and verbalizes understanding of steps. Will d /c acute PT. Discussed benefits of RW vs crutches vs knee scooter for different terrains and purposes at d/c. Frequency of Treatment Frequency Of Treatment Discharge Weight Bearing Status Weight Bearing Status Non-Weight Bearing Recommendations To Nursing Amount of Assist Needed Standby Assistance Discharge Recommendations PT Discharge Recommendations Home with Assistance, Outpatient PT Transportation Needs at Discharge Private Vehicle
--- NOTE | 2024-01-10 14:48 | CM.DANOTE ---
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 No History Provided By Patient,Medical Record Prior Living Arrangements RV Household Members none Type of transporation used prior to Drives own vehicle admit Independent with ADL's Yes Is patient alert and oriented? Yes Patient/Family Preference OP PT Therapy Barriers to Discharge No Comment Patient is s/p ankle repair, planned for return home and has been cleared by therapies for this plan. No needs from this CM team identified. Discharge Plan Home Transportation Arrangement Family Referrals Initiated None needed
== END 2024-01-10 10:40 | disposition home or self-care (01) ==
LOC: OR 13:37 → AC 15:51
PROVIDERS: PCP Family Medicine; Referring Provider Orthopaedic Surgery Foot and Ankle Surgery; Visit Provider Orthopaedic Surgery Foot and Ankle Surgery
PROC: (CPT 27792; principal; 2024-01-09 13:30)
DX: S82.892A Other fracture of left lower leg, initial encounter for closed fracture (principal); S93.05XA Dislocation of left ankle joint, initial encounter; W01.0XXA Fall on same level from slipping, tripping and stumbling without subsequent striking against object, initial encounter; Y93.K1 Activity, walking an animal; G89.18 Other acute postprocedural pain
CPT/HCPCS: 27792; 27829; 36415; 64450; 73610; 76000; 81025; 85027; 97161; C1713; J0171; J0690; J1100; J1170; J1885; J2250; J2405; J2704; J3010

== ENCOUNTER 2024-02-21 06:53 | Inpatient (IN) | payer OTHER, MEDICAID, SELFPAY ==
[2024-01-09 16:04] VITALS: BMI 33.7
[2024-02-19 14:53] VITALS: BMI 33.7
[2024-02-21] VITALS (11 sets, daily range): BP systolic 133–177; BP diastolic 53–115; PULSE 67–89; RESP 11–18; TEMP 36–36.8; O2SAT 94–100; BMI 33.9
--- NOTE | 2024-02-21 07:34 | P.OP_ITS ---
Operative Date/Time/Diagnoses Date of procedure: 02/21/24 Time of procedure: 07:34 Pre-op diagnosis: Ankle surgical wound infection, left ankle fracture dislocation Post-op diagnosis: same Procedure & Clinicians Procedure: Debridement skin subcutaneous tissue down to the level of the fibular hardware left ankle CPT code 89016 Same procedure as scheduled: Yes Indications: Patient is a 49-year-old female who sustained a left ankle fracture dislocation. She underwent open reduction internal fixation for this January 09, 2024. At her 1st postop she had a lot of scabbing and some dehiscence around the incision. She had not have erythema. This was treated with Betadine paints and oral antibiotics. When she presented for wound check the appearance was unchanged with persistent drainage. She was indicated for formal debridement and is brought to surgery today for this. We discussed possible need for additional surgeries or staged removal of hardware after fracture is healed. At this point goal would be implant retention for fracture healing and infection treatment with appropriate antibiotics. The risks and benefits of the procedure have been discussed with the patient and given the opportunity to ask questions. The risks of surgery include but are not limited to infection, need for additional surgery, malunion, nonunion, per sistence of pain, damage to nerves and blood vessels, posttraumatic arthritis, DVT, PE, coardiopulmonary complications and . The patient expressed a thorough understanding of the risks and benefits of surgery and has elected to proceed. Consent was signed, Surgeon: Blanquita Astorga Click Yes if Unassisted: Yes Anesthesia Type: General and Local Operative Notes Findings: Dehiscence lateral fibula incision wound clear drainage. Closure Type: primary Specimen(s): other (Cultures were sent for PCR aerobic and anaerobic left ankle) Estimated Blood Loss (mL): 10 Blood products transfused: none Tourniquet time (min): 2 Procedure in detail: Patient was seen in the preoperative area site of surgery was marked this is the left ankle. Consent was confirmed. The patient was taken to the operating room and anesthesia was administered. The patient was positioned on the operative table. The left side was exposed. Bony prominences were well padded. A thigh tourniquet was applied. An SCD was on the contralateral lower extremity. The left lower extremity was prepped and draped in standard sterile fashion formal time-out procedure was performed. All were in agreement. A preoperative antibiotic was administered. The patient has also been on oral antibiotics. Attention was turned to the left lower extremity gravity exsanguination was utilized the tourniquet was elevated on the thigh to 250 mm of mercury. This almost 8 elevated for about 3 minutes as it was a venous tourniquet and then was let down for the remainder of the case. Attention was turned to the left lateral ankle the incision was dehisced superficially. There was no surrounding erythema but the length of the lateral incision was dehisced. No expressible fluid today but the fluid on the dressing that was removed prior to positioning. A scalpel was used to excise the dehisced wound removing the skin subcutaneous tissue around the edges of the wound get fresh wound edges. This was excised down through subcutaneous tissue. The area did go down to the level of the plate at the distal fibula. Cultures were obtained and sent for microbiology and Gram stain. Additionally tissue was obtained and sent for bacterial PCR. Sharp excisional debridement was performed. Rongeur and curette were used along the soft tissues throughout the length of the incision and scrubbed along the plate. There was no gross purulence but the plate was exposed. There was no evidence of loose hardware. Then 3 L of pulsatile lavage was used to irrigate the wound. Once this was completed a clean drape was placed. ?gloves were changed and the wound was closed with 2-0 and 3-0 nylon suture. A few 2-0 deep PDS suture were attempted however the pulled through the tissue therefore combination of nylon sutures were utilized tension retaining stitches, horizontal and vertical mattress sutures to approximate the incision. Once this was completed the area was infiltrated with 10 cc of 0.25% Marcaine with epinephrine for local anesthetic. And a sterile dressing was applied with Xeroform gauze Kerlix and Ji wrap. The patient was awoken from anesthesia taken to recovery room in good condition. Complications: none Post-operative Condition: stable Disposition: Acute Care Plan for aftercare: Admission for empiric IV antibiotics. Once cultures finalized and appropriate antibiotic plan arranged outpatient would likely anticipate 4-6 weeks of IV antibiotics. We will arrange infectious disease consultation. Inpatient admission forIV antibiotics. We will wait for final cultures before PICC line decision but anticipate dialysis social worker assistance with home health antibiotics versus Infusion Center due to social situation. They work on progressive weight-bearing 25% each week in a walking boot. May come out of boot for range of motion. Keep incision dry and clean. May change dressing as needed.
--- NOTE | 2024-02-21 07:34 | PM.PREOP ---
Pre-operative Note Interval Note History & Physical reviewed/Exam performed by Physician: Yes Changes to H&P: No
[2024-02-21] MEDS: ACETAMINOPHEN 325 MG TABLET 975 MG PO (07:49)
[2024-02-21] MEDS: SCOPOLAMINE 1 PATCH TOP (07:53)
[2024-02-21] MEDS: LACTATED RINGERS 1,000 ML 42 ML IV (07:53)
[2024-02-21] MEDS: CEFAZOLIN 2 GM/100 ML PREMIX 100 ML IV (08:07)
--- NOTE | 2024-02-21 08:26 | SUR.OPER ---
Supine on padded OR bed, head on pillow, arms secured on padded arm boards at <90 degrees abduction, legs uncrossed, safety belt at thigh, tape over blanket over lower legs.
[2024-02-21] MEDS: HYDROMORPHONE 1 MG INJ IV ×3 (08:56→09:20)
[2024-02-21] MEDS: hydrOXYzine 50 MG/ML INJ IM (08:57)
[2024-02-21] MEDS: OXYCODONE IR 5 MG TABLET PO ×3 (09:03→16:48)
[2024-02-21] MEDS: LACTATED RINGERS 1,000 ML 100 ML IV ×2 (10:00→22:08)
[2024-02-21] MEDS: CEFEPIME 1 GM in SODIUM CHLORIDE 0.9% 100 ML IV ×2 (11:11→22:08)
[2024-02-21 11:29] LABS: Add Manual Diff / Slide Review NO; Basophils Absolute Auto 0 /uL (0-100); Basophils Percent Auto 0.5 % (0-2); Eosinophils Absolute Auto 0 /uL (0-450); Eosinophils Percent Auto 0.1 % (2-4); Hematocrit 43.8 % (36-46); Hemoglobin 14.7 g/dL (12.0-16.0); Lymphocytes Absolute Auto 500 /uL (1100-4500); Mean Corpuscular HGB Conc 33.5 % (30-36); Mean Corpuscular Hemoglobin 34.7 PG (26-34); Mean Corpuscular Volume 103.4 fL (80-100); Monocytes Absolute Auto 100 /uL (0-900); Monocytes Percent Auto 2.2 % (3-14); Neutrophils Absolute Auto 4500 /uL (1500-7000); Neutrophils Percent Auto 88.2 % (50-75); Platelet Count 240 X10^3/uL (150-400); Red Blood Cell Count 4.23 X10^6/uL (4.0-5.2); Red Cell Distribution Width 15.1 % (11.6-14.8); White Blood Cell Count 5.2 X10^3/uL (4.5-11.0)
[2024-02-21 11:42] LABS: Alanine Aminotransferase 21 IU/L (<35); Albumin 4.1 g/dL (3.5-5.0); Albumin Globulin Ratio 1.2 (1.0-2.8); Alkaline Phosphatase 75 U/L (38-126); Aspartate Aminotransferase 28 IU/L (14-36); BUN Creatinine Ratio 11.5 (6-22); Bilirubin Total 0.5 mg/dL (0.2-1.3); Blood Urea Nitrogen 9 mg/dL (7-17); Calcium 8.9 mg/dL (8.4-10.2); Carbon Dioxide 29 mmol/L (22-32); Chloride 105 mmol/L (98-107); Estimated Glomerular Filt Rate > 60 mL/min (>60); Globulin 3.5 g/dL (1.7-4.1); Glucose 127 mg/dL (70-100); HEMOLYSIS < 15 (0-50); Potassium 5.2 mmol/L (3.4-5.1); Sodium 134 mmol/L (137-145); Total Protein 7.6 g/dL (6.3-8.2)
[2024-02-21 11:50] LABS: Erythrocyte Sedimentation Rate 1 MM/HR (0-20)
[2024-02-21] MEDS: VANCOMYCIN 2,000 MG/400 ML PIGGYBACK 200 MG IV (11:52)
[2024-02-21 12:38] LABS: C-Reactive Protein Quant < 0.5 mg/dL (<1.0)
--- NOTE | 2024-02-21 16:12 | PT.IIE ---
Current Diagnoses Other fracture of left lower leg, initial encounter for closed fracture (02/21/24) Dislocation of left ankle joint, initial encounter (02/21/24) Infection following a procedure, other surgical site, initial encounter (02/21/24) Surgery Performed Operation Date: 02/21/24 07:45 Actual Procedures p Debridement surgical wound infection ankle(Left) - Blanquita Astorga MD Surgical History (Last Updated 02/19/24 @ 14:56 by Maylin Castellano RN) History of ankle surgery (01/09/24) Medical History (Last Updated 04/18/22 @ 11:41 by Brent Frost MD) Alopecia (~2016) Anemia (~2014) Elevated liver enzymes Fibroids (~07/2014) Hyperglycemia Painful menstrual periods (~08/2012) Vitamin D deficiency Physical Therapy Inpatient Evaluation/Re-Eval M1 PT/OT-IP Prior Functional Status Start: 02/21/24 15:58 Freq: NEEDED Status: Active Protocol: Document 02/21/24 15:59 KJ (Rec: 02/21/24 16:11 KJ [id number]) Medical Review Prior Functional Status Mobility and Gait Amb w/crutches PWB LLE on level surfaces and stairs, however was not leaving her RV much since the ankle fx. Activities of Daily Living and IADL's Indep with bed baths, dressing , simple meal prep. Required assistance of friends/ neighbors for shopping and appointments. Neighbors also walk her dog twice a day. Prior Functional Level (Other details) Works at [employer]. Has not been working since the ankle fx. Social History Household Members none Living Arrangements RV Number of Floors (Floors) One Floor Number of Stairs To Enter/Railing? 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 M2 PT-IP Current Condition Start: 02/21/24 15:58 Freq: NEEDED Status: Active Protocol: Document 02/21/24 15:59 KJ (Rec: 02/21/24 16:11 KJ [id number]) Physical Therapy Current Condition Current Condition Evaluation Date 02/21/24 Treatment Diagnosis impaired mobility Onset Date 12/30/23 M3 PT-IP Subjective Start: 02/21/24 15:58 Freq: NEEDED Status: Active Protocol: Document 02/21/24 15:59 KJ (Rec: 02/21/24 16:11 KJ [id number]) Subjective Physical Therapy Visit Type Type Initial Evaluation Visit Start Time 13:34 Visit Stop Time 14:21 Physical Therapy Visit Comments Patient Comments minimal pain in ankle Patient Goals return home, heal Therapy Pain Assessment Pain When Pain Assessed At Rest Pain Present Pain Present Pain Reported Location left leg Intensity 3 Description Sharp Pain Management Techniques Apply Cold M4 PT-IP Mobility and Gait Start: 02/21/24 15:58 Freq: NEEDED Status: Active Protocol: Document 02/21/24 15:59 KJ (Rec: 02/21/24 16:11 KJ [id number]) PT-Bed Mobility Assessment Supine to Sit Supine to Sit Standby Assistance Sit to Supine Sit to Supine Standby Assistance Scooting Scooting to Edge of Bed Independent PT-Transfer Assessment Sit to and From Stand Sit to and from Stand Contact Guard Assistance Equipment Transfer Assistive Device Front Wheeled Walker Orthotic/Prosthetic Devices or Brace: Yes Transfers Transfer Destination Toilet Transfer Technique Stand Step Pivot Transfer Ability Level of Assist Contact Guard Assistance Gait Assessment Gait Gait Assistance Required: Contact Guard Assist Able to Maintain Weight Bearing Status Yes During Gait Assistive Devices Assistive Device Front Wheeled Walker,Axillary Crutches Orthotic/Prosthetic Devices or Brace: Yes Gait Deviations General Gait Pattern Decreased Stride Length Comments Gait Comments Amb w/fww on level surface 15' w/CGA. Progressed to amb w/ axillary crutches 10' on level surface - some unsteadiness w /crutches. Recommended to pt to use walker when up with nurses at this time. PT-Balance Assessment Sitting Balance and Reactions Static Sitting Balance Ability Normal Dynamic Sitting Balance Ability Normal Standing Balance and Reactions Static Standing Balance Ability Good Dynamic Standing Balance Ability Fair M5 PT-IP Objective Assessments Start: 02/21/24 15:58 Freq: NEEDED Status: Active Protocol: Document 02/21/24 15:59 KJ (Rec: 02/21/24 16:11 KJ [id number]) Orientation Orientation/Cognition Level of Alertness Alert Orientation Name,Age,Birthday,Month,Date, Situation Language Function Ability No Deficits Noted Safety Awareness Understands Safety Issues Gross Range of Motion Upper Extremity ROM Assessment Within Functional Limits Lower Extremity ROM Assessment Left Impaired Impairments min movement of ankle, decreased toe movement on L Strength Upper Extremity Strength Assessment Within Functional Limits Lower Extremity Strength Assessment Left Impaired Ankle not tested Coordination Assessment Gross Coordination Gross Coordination WNL Sensation Assessment Sensation Gross Sensation Left UE Impaired M6 PT-IP Treatment Start: 02/21/24 15:58 Freq: NEEDED Status: Active Protocol: Document 02/21/24 15:59 KJ (Rec: 02/21/24 16:11 KJ [id number]) Physical Therapy Treatment Exercises Exercises Ankle Pumps,Gluteal Sets,Quad Sets Education Education Provided Weight Bearing Status,Safety Other Treatments Other Treatment Performed Boot worn during mobility M7 PT-IP Assessment and Plan Start: 02/21/24 15:58 Freq: NEEDED Status: Active Protocol: Document 02/21/24 15:59 KJ (Rec: 02/21/24 16:11 KJ [id number]) PT Summary Assessment and Plan Potential Rehabilitation Potential Excellent Status of Condition at Evaluation Stable Summary Impairments ROM,Balance,Transfers,Gait Progress Towards Goals Progressing Toward Goals Goals Bed Mobility Goal Independent Transfer Goal Standby Assistance Gait Goal Standby Assistance Gait Distance 50' Other Goals ascend/descend 3 steps w/rail and crutch 25% weight bearing on LLE Days to Meet Goals 2 Frequency of Treatment Frequency Of Treatment Once a Day Treatment Plan Physical Therapy Treatment Plan Transfer Training,Gait Training Weight Bearing Status Weight Bearing Status Partial Weight Bearing Allowed Weight Bearing Amount (enter % 25% weight bearing for one or #) (%) week Recommendations To Nursing Amount of Assist Needed 1 Person Assist Discharge Recommendations PT Discharge Recommendations Home with Assistance Equipment Needed for Home Before Pt already has crutches Discharge Transportation Needs at Discharge Private Vehicle
--- NOTE | 2024-02-21 16:15 | OT.IP.EVAL ---
Current Diagnoses Other fracture of left lower leg, initial encounter for closed fracture (02/21/24) Dislocation of left ankle joint, initial encounter (02/21/24) Infection following a procedure, other surgical site, initial encounter (02/21/24) Surgery Performed Operation Date: 02/21/24 07:45 Actual Procedures p Debridement surgical wound infection ankle(Left) - Blanquita Astorga MD Past Medical History (Last Updated 04/18/22 @ 11:41 by Brent Frost MD) Alopecia (~2016) Anemia (~2014) Elevated liver enzymes Fibroids (~07/2014) Hyperglycemia Painful menstrual periods (~08/2012) Vitamin D deficiency Surgical History (Last Updated 02/19/24 @ 14:56 by Maylin Castellano RN) History of ankle surgery (01/09/24) Occupational Therapy Inpatient Evaluation/Re-Eval M1 PT/OT-IP Prior Functional Status Start: 02/21/24 15:58 Freq: NEEDED Status: Active Protocol: Document 02/21/24 16:21 [facility] (Rec: 02/21/24 16:34 [facility] [id number]) Medical Review Prior Functional Status Mobility and Gait Amb w/crutches PWB LLE on level surfaces and stairs, however was not leaving her RV much since the ankle fx. Activities of Daily Living and IADL's Indep with bed baths, dressing , simple meal prep. Required assistance of friends/ neighbors for shopping and appointments. Neighbors also walk her dog twice a day. Prior Functional Level (Other details) Works at [employer]. Has not been working since the ankle fx. Social History Household Members none Living Arrangements RV Number of Floors (Floors) One Floor Number of Stairs To Enter/Railing? 3 steps with left rail going up. 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 M3 OT- IP Subjective and Pain Start: 02/21/24 16:20 Freq: Status: Active Protocol: Document 02/21/24 16:21 [facility] (Rec: 02/21/24 16:34 [facility] [id number]) OT- Subjective Occupational Therapy Visit Type Type Initial Evaluation Visit Start Time 15:47 Visit Stop Time 16:15 Occupational Therapy Visit Comments Patient Comments Pt agreed to work with OT. Patient/Caregiver Goals TO get better. OT Pain Assessment Pain When Pain Assessed During Mobility Pain Present Pain Present Pain Reported M4 OT- IP ADL's Start: 02/21/24 16:20 Freq: Status: Active Protocol: Document 02/21/24 16:21 [facility] (Rec: 02/21/24 16:34 [facility] [id number]) OT IBO-[id number] General Evaluation Self-Feeding Ability Independent OT ADL-Grooming Comments OT Grooming Comments Pt states did prior. OT ADL-Oral Care Comments Oral Care Comments Pt states did prior. OT ADL-Dressing Comments OT Dressing Comments Able to issue income tax advisor to assist with LB dressing needs. OT ADL-Toileting Comments OT Toileting Comments Pt just used the toilet prior with PT. OT ADL-Bathing Comments OT Bathing Comments Pt states is just sponging off for now. M5 OT- IP IADL's Start: 02/21/24 16:20 Freq: Status: Active Protocol: Document 02/21/24 16:21 [facility] (Rec: 02/21/24 16:34 [facility] [id number]) OT-Instrumental Activities of Daily Living Home Safety Awareness Awareness of Need for Assistance at Home Good Awareness Ability to Problem Solve Emergency Able to Problem Solve Situations Home Safety Comments Spoke on use of stool to sit of for cooking needs or possible to put her left knee on a chair if having to stand for longer periods of time in not initially able to stand for long periods of time with 25% on her LLE. Medication Management Medication Management Comments Pt does her own. Money Management Money Management Comments Pt does her own. Meal Preparation Meal Preparation Comments Spoke of asking friends/cheondoism to assist. Charge Machine Operator Charge Machine Operator Comments Pt may need assist. M6 OT- IP Functional Cognition Start: 02/21/24 16:20 Freq: Status: Active Protocol: Document 02/21/24 16:21 [facility] (Rec: 02/21/24 16:34 [facility] [id number]) Cognitive Factors Limiting Selfcare Function Cognitive Ability Level of Alertness Alert Patient Orientation Name,Age,Birthday,Month,Date, Year,Day of Week,Place, Situation Attention Span Ability Capable of Focused Attention, Capable of Sustained Attention Ability to Follow Commands Able to Follow One Step Commands Cognitive Comments Cognitive Assessment Comments Pt is very tearful and emotional of the recent separation from her . Spoke at length of stress management needs with pt. OT- Vision and Hearing OT- Hearing Assessment OT- Hearing Assessment WFL M7 OT- IP Mobility and Balance Start: 02/21/24 16:20 Freq: Status: Active Protocol: Document 02/21/24 16:21 [facility] (Rec: 02/21/24 16:34 [facility] [id number]) OT- Bed Mobility Assessment Supine to Sit Supine to Sit Assist Independent Sit to Supine Sit to Supine Assist Independent OT-Transfer Assessment Comments Mobility Comments Pt able to get up with PT earlier with CGA and FWW. Spoke of getting bed wedge to assist to get her LLE up more while in bed of use of pillows . OT- Balance Assessment Sitting Balance and Reactions Static Sitting Balance Ability Normal Dynamic Sitting Balance Ability Normal M8 OT- IP Objective Assessments Start: 02/21/24 16:20 Freq: Status: Active Protocol: Document 02/21/24 16:21 [facility] (Rec: 02/21/24 16:34 [facility] [id number]) OT Gross Range of Motion Upper Extremity Range of Motion Assessment Within Functional Limits OT Strength Upper Extremity Strength Assessment Within Functional Limits M9 OT- IP Assessment and Plan Start: 02/21/24 16:20 Freq: Status: Active Protocol: Document 02/21/24 16:21 [facility] (Rec: 02/21/24 16:34 [facility] [id number]) OT Summary Assessment and Plan Potential Rehabilitation Potential Excellent Analytic Complexity at Evaluation Low Summary OT Impairments Pain,Balance,Functional Mobility,Dressing,Toileting, Bathing,Toilet Transfers, Shower Transfers,Activity Tolerance Progress Towards Goals Progressing Toward Goals Assessment Summary Pt low complexity and main barriers are pain, steps, and will need assist for IADL needs. Pt to go home when medically stable. Pt will benefit from assist at home and to continue have outpt PT or may benefit from home health initially- pt lives alone and not able to drive at this time. Goals Grooming Goal Independent Dressing Goal Independent,Offset Plate Maker Toileting Goal Independent Bathing Goal Independent Toilet Transfer Goal Independent Shower Transfer Goal Independent OT-Other Goals Pt to be able to incorporate stress management techniques daily. Days to Meet Goals 5 Frequency of Treatment Frequency Of Treatment Once a Day Treatment Plan OT Treatment Plan ADL Training,Functional Mobility,Patient/Family Education,Discharge Planning Other Treatment Recommendations and Next Standing ADL's. Treatment Focus Discharge Recommendations OT Discharge Recommendations Home with Assistance,Home Health,Outpatient PT Home Equipment Needs tub bench, bed wedge Transportation Needs at Discharge Private Vehicle
[2024-02-21] MEDS: IBUPROFEN 400 MG TABLET PO (16:47)
[2024-02-21] MEDS: DOCUSATE 100 MG CAPSULE PO (20:15)
[2024-02-21] MEDS: SENNOSIDES 8.6 MG TABLET 17.2 MG PO (20:15)
--- NOTE | 2024-02-21 20:54 | PM.PNPO.1 ---
Subjective Subjective Interval history: pod 0 L ankle I&D plan - board spec abx cefepine/vanc until cultures allow tailoring. plan PICC for prolonged IVABX need Exam Vital Signs (past 8 hours): - 02/21/24 19:00 Temperature 96.8 F L Pulse Rate 86 Respiratory Rate 18 Blood Pressure 133/81 Pulse Oximetry 98 Oxygen Flow Rate 0 Oxygen Delivery Method Room Air Oxygen Flow Rate 0 Objective Labs 02/21/24 11:17 02/21/24 11:17 Labs: Laboratory Results - last 24 hr 02/21/24 11:17 WBC 5.2 RBC 4.23 Hgb 14.7 Hct 43.8 MCV 103.4 H MCH 34.7 H MCHC 33.5 RDW 15.1 H Plt Count 240 Neut % (Auto) 88.2 H Lymph % (Auto) 9.0 L Letcher % (Auto) 2.2 L Eos % (Auto) 0.1 L Baso % (Auto) 0.5 Neut # (Auto) 4500 Lymph # (Auto) 500 L Letcher # (Auto) 100 Eos # (Auto) 0 Baso # (Auto) 0 ESR 1 Sodium 134 L Potassium 5.2 H Chloride 105 Carbon Dioxide 29 BUN 9 Creatinine 0.78 Estimated GFR > 60 BUN/Creatinine Ratio 11.5 Glucose 127 H Calcium 8.9 Total Bilirubin 0.5 AST 28 ALT 21 Alkaline Phosphatase 75 C-Reactive Protein < 0.5 Total Protein 7.6 Albumin 4.1 Globulin 3.5 Albumin/Globulin Ratio 1.2 PFSH Medical History (Updated 01/14/24 @ 00:00 by ) Elevated liver enzymes Hyperglycemia Vitamin D deficiency Alopecia (~2016) Anemia (~2014) Painful menstrual periods (~08/2012) Fibroids (~07/2014) Surgical History (Updated 02/19/24 @ 14:56 by Maylin Castellano RN) History of ankle surgery (01/09/24) Family History Father Diabetes mellitus Hypertension Brother No problems noted. Grandfather History of heart disease Grandmother History of heart disease Grandmother History of heart disease Social History household members: none Smoking Status: Never smoker alcohol intake: current Assessment & Plan Post-op Postoperative Procedures: Procedures Operation Date: 02/21/24 07:45 Actual Procedure Side Surgeon p Debridement surgical wound infection ankle Left Blanquita Astorga MD Quality VTE Deep Vein Thrombosis/Pulmonary Embolism Present on Admission: No
[2024-02-22] MEDS: VANCOMYCIN 1,500 MG/300 ML PIGGYBACK 200 MG IV ×3 (00:04→23:32)
[2024-02-22 06:58] LABS: Add Manual Diff / Slide Review NO; Basophils Absolute Auto 0 /uL (0-100); Basophils Percent Auto 0.4 % (0-2); Eosinophils Absolute Auto 0 /uL (0-450); Eosinophils Percent Auto 0.4 % (2-4); Hematocrit 41.3 % (36-46); Hemoglobin 13.9 g/dL (12.0-16.0); Lymphocytes Absolute Auto 1400 /uL (1100-4500); Lymphocytes Percent Auto 15.7 % (25-40); Mean Corpuscular HGB Conc 33.7 % (30-36); Mean Corpuscular Volume 103.7 fL (80-100); Monocytes Absolute Auto 800 /uL (0-900); Monocytes Percent Auto 8.8 % (3-14); Neutrophils Absolute Auto 6500 /uL (1500-7000); Neutrophils Percent Auto 74.7 % (50-75); Platelet Count 242 X10^3/uL (150-400); Red Blood Cell Count 3.98 X10^6/uL (4.0-5.2); Red Cell Distribution Width 15.1 % (11.6-14.8); White Blood Cell Count 8.7 X10^3/uL (4.5-11.0)
[2024-02-22] MEDS: OXYCODONE IR 5 MG TABLET PO ×2 (07:01→18:03)
[2024-02-22 07:12] LABS: Blood Urea Nitrogen 15 mg/dL (7-17); Calcium 8.4 mg/dL (8.4-10.2); Carbon Dioxide 24 mmol/L (22-32); Chloride 105 mmol/L (98-107); Estimated Glomerular Filt Rate > 60 mL/min (>60); Glucose 108 mg/dL (70-100); HEMOLYSIS < 15 (0-50); Sodium 136 mmol/L (137-145)
[2024-02-22 08:00] VITALS: BP 127/83; PULSE 77; RESP 16; TEMP 36.4; O2SAT 99
--- NOTE | 2024-02-22 09:04 | PT.IPTN ---
Current Diagnoses Other fracture of left lower leg, initial encounter for closed fracture (02/21/24) Dislocation of left ankle joint, initial encounter (02/21/24) Infection following a procedure, other surgical site, initial encounter (02/21/24) Surgery Performed Operation Date: 02/21/24 07:45 Actual Procedures p Debridement surgical wound infection ankle(Left) - Blanquita Astorga MD Physical Therapy Treatment Note M2 PT-IP Current Condition Start: 02/21/24 15:58 Freq: NEEDED Status: Active Protocol: Document 02/21/24 15:59 KJ (Rec: 02/21/24 16:11 KJ [id number]) Physical Therapy Current Condition Current Condition Evaluation Date 02/21/24 Treatment Diagnosis impaired mobility Onset Date 12/30/23 M3 PT-IP Subjective Start: 02/21/24 15:58 Freq: NEEDED Status: Active Protocol: Document 02/22/24 09:28 TS (Rec: 02/22/24 09:44 TS [id number]) Subjective Physical Therapy Visit Type Type Treatment Note Visit Start Time 09:04 Visit Stop Time 09:28 Number of INVESTIGATIONS CONSULTANT Visits 1 Physical Therapy Visit Comments Patient Comments Pt reports some ankle pain, she is agreeable to PT. Therapy Pain Assessment Pain When Pain Assessed At Rest Pain Present Pain Present Pain Reported M4 PT-IP Mobility and Gait Start: 02/21/24 15:58 Freq: NEEDED Status: Active Protocol: Document 02/22/24 09:28 TS (Rec: 02/22/24 09:44 TS [id number]) PT-Bed Mobility Assessment Supine to Sit Supine to Sit Independent Sit to Supine Sit to Supine Independent Scooting Scooting to Edge of Bed Independent PT-Transfer Assessment Sit to and From Stand Sit to and from Stand Standby Assistance Equipment Transfer Assistive Device Gait Belt,Front Wheeled Walker Orthotic/Prosthetic Devices or Brace: Yes Comments Mobility Comments Supine to sit Ind with HOB elevated. Pt required some assistance to don boot on LLE due to height of bed. STS from bed SBA with crutches, pt dmeonstrates good carryover of STS technique. She ambulated ~100'SBA with B crutches. She performed stairs x3 ascending/ descending with single rail and one crutch SBA. She ambulated back to room, sit to supine into bed Ind, pt requried assist with pillow underneath ankle. She was left in bed, all needs met. Gait Assessment Gait Gait Assistance Required: Standby Assistance Able to Maintain Weight Bearing Status Yes During Gait Assistive Devices Assistive Device Front Wheeled Walker,Axillary Crutches Orthotic/Prosthetic Devices or Brace: Yes Gait Deviations General Gait Pattern Decreased Stride Length, Decreased Feet Clearance,Step- to Gait Factors Limiting Gait Function Factors Limiting Gait Function Decreased Activity Tolerance, Decreased Strength Stair Climbing Assessment Evaluation Level of Assist On Stairs Standby Assistance Devices Stair Climbing Assistive Devices Axillary Crutches,Left Railing Technique/Endurance Stair Climbing Direction Ascend and Descend Stair Climbing Technique Step to Step Number of Steps Climbed 3 Comments Stair Climbing Comments See mobility comments PT-Balance Assessment Sitting Balance and Reactions Static Sitting Balance Ability Normal Dynamic Sitting Balance Ability Normal Standing Balance and Reactions Static Standing Balance Ability Good Dynamic Standing Balance Ability Fair M5 PT-IP Objective Assessments Start: 02/21/24 15:58 Freq: NEEDED Status: Active Protocol: Document 02/21/24 15:59 KJ (Rec: 02/21/24 16:11 KJ [id number]) Orientation Orientation/Cognition Level of Alertness Alert Orientation Name,Age,Birthday,Month,Date, Situation Language Function Ability No Deficits Noted Safety Awareness Understands Safety Issues Gross Range of Motion Upper Extremity ROM Assessment Within Functional Limits Lower Extremity ROM Assessment Left Impaired Impairments min movement of ankle, decreased toe movement on L Strength Upper Extremity Strength Assessment Within Functional Limits Lower Extremity Strength Assessment Left Impaired Ankle not tested Coordination Assessment Gross Coordination Gross Coordination WNL Sensation Assessment Sensation Gross Sensation Left UE Impaired M6 PT-IP Treatment Start: 02/21/24 15:58 Freq: NEEDED Status: Active Protocol: Document 02/22/24 09:28 TS (Rec: 02/22/24 09:44 [id number]) Physical Therapy Treatment Education Education Provided Weight Bearing Status,Safety M7 PT-IP Assessment and Plan Start: 02/21/24 15:58 Freq: NEEDED Status: Active Protocol: Document 02/22/24 09:28 TS (Rec: 02/22/24 09:44 [id number]) PT Summary Assessment and Plan Potential Rehabilitation Potential Excellent Summary Impairments ROM,Balance,Transfers,Gait Progress Towards Goals Progressing Toward Goals Assessment Summary Geraldine is progressing well with her mobility. She is Ind for all bed mobility with HOB elevated. She progressed her gait to ~100'SBA with crutches . She progressed to stairs to x3 with single handrail and single crutch SBA. She demonstrates good awareness of her PWB status and has good carryover of use of crutches. Goals Bed Mobility Goal Independent Transfer Goal Standby Assistance Gait Goal Standby Assistance Gait Distance 50' Other Goals ascend/descend 3 steps w/rail and crutch 25% weight bearing on LLE Days to Meet Goals 2 Frequency of Treatment Frequency Of Treatment Once a Day Treatment Plan Physical Therapy Treatment Plan Transfer Training,Gait Training Weight Bearing Status Weight Bearing Status Partial Weight Bearing Allowed Weight Bearing Amount (enter % Progress 25% each week in a or #) (%) walking boot. Recommendations To Nursing Amount of Assist Needed Standby Assistance Discharge Recommendations PT Discharge Recommendations Home with Assistance Equipment Needed for Home Before Pt already has crutches Discharge Transportation Needs at Discharge Private Vehicle
--- NOTE | 2024-02-22 09:09 | PM.PNPO.1 ---
Subjective Subjective Date Patient Seen: 02/22/24 Time Patient Seen: 09:09 Interval history: Patient is found resting comfortably in bed and just about to start physical therapy. She states she has had no increase in pain throughout the evening. Denies no new sensation of numbness or tingling down the left lower extremity. Denies any drainage coming from the wound. Exam Vital Signs (past 8 hours): Oxygen Delivery Method Room Air Oxygen Flow Rate 0 Narrative Exam Narrative: Dressing appears to be dry and well-maintained. Patient is able to manipulate all 5 digits of the left foot. Able to dorsi and plantar flex. Able to flex and extend at the knee. Sensation grossly intact to light touch. Objective Labs 02/22/24 06:51 02/22/24 06:51 Labs: Laboratory Results - last 24 hr 02/21/24 02/22/24 11:17 06:51 WBC 5.2 8.7 D RBC 4.23 3.98 L Hgb 14.7 13.9 Hct 43.8 41.3 MCV 103.4 H 103.7 H MCH 34.7 H 35.0 H MCHC 33.5 33.7 RDW 15.1 H 15.1 H Plt Count 240 242 Neut % (Auto) 88.2 H 74.7 Lymph % (Auto) 9.0 L 15.7 L Jefferson % (Auto) 2.2 L 8.8 Eos % (Auto) 0.1 L 0.4 L Baso % (Auto) 0.5 0.4 Neut # (Auto) 4500 6500 Lymph # (Auto) 500 L 1400 Jefferson # (Auto) 100 800 Eos # (Auto) 0 0 Baso # (Auto) 0 0 ESR 1 Sodium 134 L 136 L Potassium 5.2 H 4.0 D Chloride 105 105 Carbon Dioxide 29 24 BUN 9 15 Creatinine 0.78 0.79 Estimated GFR > 60 > 60 BUN/Creatinine Ratio 11.5 19.0 Glucose 127 H 108 H Calcium 8.9 8.4 Total Bilirubin 0.5 AST 28 ALT 21 Alkaline Phosphatase 75 C-Reactive Protein < 0.5 Total Protein 7.6 Albumin 4.1 Globulin 3.5 Albumin/Globulin Ratio 1.2 PFSH Medical History (Updated 01/14/24 @ 00:00 by ) Elevated liver enzymes Hyperglycemia Vitamin D deficiency Alopecia (~2016) Anemia (~2014) Painful menstrual periods (~08/2012) Fibroids (~07/2014) Surgical History (Updated 02/19/24 @ 14:56 by Maylin Castellano RN) History of ankle surgery (01/09/24) Family History Father Diabetes mellitus Hypertension Brother No problems noted. Grandfather History of heart disease Grandmother History of heart disease Grandmother History of heart disease Social History household members: none Smoking Status: Never smoker alcohol intake: current Assessment & Plan Post-op Postoperative Procedures: Procedures Operation Date: 02/21/24 07:45 Actual Procedure Side Surgeon p Debridement surgical wound infection ankle Left Blanquita Astorga MD Postoperative day: 1 Postoperative status: doing well Postoperative plan narrative: Cultures are still pending. Continue with empiric IV antibiotics during admission. Once cultures return plan I and D consult with Rowan I and D for antibiotic planning. We will wait for final cultures before PICC line decision but anticipate social organization professor assistance with home health antibiotics versus Infusion Center due to social situation. They work on progressive weight-bearing 25% each week in a walking boot. May come out of boot for range of motion. Keep incision dry and clean. May change dressing as needed. Continue to work with PT for ambulation. Multimodal pain control. Time Spent With Patient Time with patient: less than 15 minutes Quality VTE Deep Vein Thrombosis/Pulmonary Embolism Present on Admission: No
[2024-02-22] MEDS: polyethylene glycoL 3350 17 GM POWD.PACK PO (10:13)
[2024-02-22] MEDS: DOCUSATE 100 MG CAPSULE PO ×2 (10:13→20:20)
[2024-02-22] MEDS: ASPIRIN EC 325 MG TABLET PO (10:13)
[2024-02-22] MEDS: CEFEPIME 1 GM in SODIUM CHLORIDE 0.9% 100 ML IV ×2 (10:18→21:53)
--- NOTE | 2024-02-22 10:58 | DI.RAD.S_ITS ---
PROCEDURE: XR CHEST FOR PICC 1V INDICATIONS: line placement COMPARISON: None. Findings and impression: Left PICC terminates projects over the SVC. Normal heart size allowing for low lung volumes. No dense consolidation. No pleural effusions. Possible basal atelectasis. Dictated by: Florentino De Luna M.D. on 02/22/2024 at 11:24 Approved by: Florentino De Luna M.D. on 02/22/2024 at 11:25
--- NOTE | 2024-02-22 12:32 | CM.DANOTE ---
Addendum entered by DEVORAH Irwin 02/22/24 16:12: It was reported that referral to [facility] is being denied at this time. DCP sent referral to [facility], pending acceptance. BORA Caldwell Original Note: DCP Assessment Note: Pt is a 49yo female, resident of [place], is here s/p an ankle I&D. Pt lives in an RV with her dog, Indie. Pt's Primary Care Provider is Dr. Brent Frost and insurance is [place] [employer]. Reviewed chart and team rounds for pt's medical status and initial discharge needs. DCP met w/patient at bedside; introduced self and role. Pt was found in bed, alert and oriented, cooperative with assessment. Present in the room is pt's friend, Vanesas. Pt confirmed living situation and good support in friends, Jr and Vanessa. Pt expressed preference in discharging home with support from her friend. DCP discussed PT/OT recommendation of home with home health. Pt agreeable to HH referral especially to assist with IV antibiotics with her PICC. DCP sent referral to [facility] , pending acceptance. Plan: Anticipating dc home with HH referral pending. CM team will plan to follow clinical course closely for coordination of discharge plan. BORA Caldwell Discharge Planning/Care Management CM Discharge Assessment Start: 02/22/24 08:43 Freq: Status: Active Protocol: Document 02/22/24 12:18 MW (Rec: 02/22/24 12:22 MW [id number]) Discharge Planning Assessment Assigned Spray Painting Machine Operator DEVORAH Guerrero DPOA/Assigned Designee Name Vanessa Todd, Friend Contact Information [phone] Advance Directives? No History Provided By Patient,Medical Record Has Patient been admitted in last 30 No days? Prior Living Arrangements RV Comment [facility], space [id number] Household Members none Comment Patient lives alone with dog, Indie. Type of transporation used prior to Drives own vehicle admit Independent with ADL's Yes Is patient alert and oriented? Yes Needs Assistance With Managing Medications Caregiver for Another No DME Already Rented / Owned Crutches Patient/Family Preference Home with Home Health Comment Patient is s/p ankle I&D, therapies recommending home with Home Health. Patient agreeable to HH referral. Discharge Plan Home [facility] Home Health Nurse Transportation Arrangement Family/Friend, Jr Referrals Initiated Home Health If patient plan is home with home health Yes : Has signed face to face form been completed? SNF/HH Preference [facility] Whiteboard Updated in Patient Room with Yes name and ext. # of Spray Painting Machine Operator Comment [phone] Please Provide Date Initial DC 02/22/24 Assessment Was Performed Next Review Type Continued Stay Review
--- NOTE | 2024-02-22 14:48 | OT.IPNOTE ---
Pt to have home health and no further OT needs while in the hospital.
[2024-02-22 15:00] VITALS: BP 112/78; PULSE 77; RESP 16; TEMP 36.6; O2SAT 99
[2024-02-22] MEDS: ACETAMINOPHEN 325 MG TABLET 650 MG PO (18:02)
[2024-02-22] MEDS: SENNOSIDES 8.6 MG TABLET 17.2 MG PO (20:20)
[2024-02-22 21:19] VITALS: BP 128/79; PULSE 78; RESP 18; TEMP 36.3; O2SAT 96
[2024-02-22] MEDS: SODIUM CHLORIDE 0.9% 250 ML 21 ML IV (21:53)
[2024-02-22] MEDS: SODIUM CHLORIDE 0.9% FLUSH 10 ML IV (21:54)
--- NOTE | 2024-02-22 22:55 | PC.NURSE ---
Patient is alert and oriented. Breath sounds CTA with RA sat of 96%. HRR. Denied nausea. BT hypoactive but is passing flatus. Is voiding on BSC and denied any dysuria. Is able to move herself in bed. Up to BSC using crutches and SBA; is suppose to wear brace to left LE when up but does not like to use it. PWB of 25% on left. Agreeable to having right calf SCD applied at time of assessment. CMS is intact to left LE. Stated pain at incision site is 4/10 but tolerable and declined offer of pain medication. Fall risk score is high but is oriented and calls appropriately so bed alarm is not activated at this time.
[2024-02-23 09:08] VITALS: BP 127/89; PULSE 74; RESP 16; TEMP 36.3; O2SAT 100
[2024-02-23] MEDS: DOCUSATE 100 MG CAPSULE PO ×2 (09:14→19:52)
[2024-02-23] MEDS: polyethylene glycoL 3350 17 GM POWD.PACK PO (09:14)
[2024-02-23] MEDS: ASPIRIN EC 325 MG TABLET PO (09:14)
[2024-02-23] MEDS: SODIUM CHLORIDE 0.9% FLUSH 10 ML IV ×2 (09:15→22:18)
[2024-02-23] MEDS: SODIUM CHLORIDE 0.9% 250 ML 21 ML IV (09:18)
[2024-02-23] MEDS: CEFEPIME 1 GM in SODIUM CHLORIDE 0.9% 100 ML IV ×2 (09:18→22:17)
--- NOTE | 2024-02-23 10:05 | PM.PNPO.1 ---
Subjective Subjective Date Patient Seen: 02/23/24 Time Patient Seen: 10:05 Interval history: PICC placed yesterday. Pt currently receiving vanco and cefepime; final cultures still pending. Per lab note, aerobic cx had to be re-incubated yesterday. Pt is sitting up in her chair, doing well, reporting manageable pain and no issues w/ PT. Exam Vital Signs (past 8 hours): - 02/23/24 09:08 Temperature 97.3 F L Pulse Rate 74 Respiratory Rate 16 Blood Pressure 127/89 Pulse Oximetry 100 Oxygen Delivery Method Room Air Oxygen Flow Rate 0 Narrative Exam Narrative: Pt able to wiggle toes, calf soft, sensation to light touch intact throughout LLE. Dressing CDI. Objective Labs 02/22/24 06:51 02/22/24 06:51 PFS Medical History (Updated 02/23/24 @ 10:07 by Bhavna Clark PA-C) Elevated liver enzymes Hyperglycemia Vitamin D deficiency Alopecia (~2016) Anemia (~2014) Painful menstrual periods (~08/2012) Fibroids (~07/2014) Surgical History (Updated 02/19/24 @ 14:56 by Maylin Castellano RN) History of ankle surgery (01/09/24) Family History Father Diabetes mellitus Hypertension Brother No problems noted. Grandfather History of heart disease Grandmother History of heart disease Grandmother History of heart disease Social History household members: none Smoking Status: Never smoker alcohol intake: current Assessment & Plan Post-op Assessment and plan (1) Wound dehiscence, surgical: Assessment and Plan narrative: Discussed w/ pt that likely organism identification and sensitivities likely not until 02/24 at the earliest. She is very happy with the care she is receiving and has friends helping take care of her pets. Continue daily ASA 325 for VTE prophylaxis. CM working on for IV abx infusions for homegoing. PICC has been placed. Postoperative Procedures: Procedures Operation Date: 02/21/24 07:45 Actual Procedure Side Surgeon p Debridement surgical wound infection ankle Left Blanquita Astorga MD Postoperative day: 2 Quality VTE Deep Vein Thrombosis/Pulmonary Embolism Present on Admission: No
--- NOTE | 2024-02-23 11:22 | PT-IP ANOTE ---
Pt refused to work with PT today, feels she is doing well and has no needs.
--- NOTE | 2024-02-23 11:39 | PT-IP ANOTE ---
Pt refused to work with PT this morning. SURVEYOR HELPER asked pt if she needs further PT and she feels comfortable with gait and stairs using her crutches and has no further PT needs. She has been Ind and SBA while working with therapy. Will d/c from PT.
[2024-02-23 12:07] LABS: Vancomycin Trough 13.5 ug/mL (10-20)
[2024-02-23] MEDS: VANCOMYCIN 1,500 MG/300 ML PIGGYBACK 200 MG IV (12:22)
--- NOTE | 2024-02-23 13:01 | PT.IPTN ---
Current Diagnoses Other fracture of left lower leg, initial encounter for closed fracture (02/21/24) Dislocation of left ankle joint, initial encounter (02/21/24) Disruption of external operation (surgical) wound, not elsewhere classified, initial encounter (02/21/24) Infection following a procedure, other surgical site, initial encounter (02/21/24) Surgery Performed Operation Date: 02/21/24 07:45 Actual Procedures p Debridement surgical wound infection ankle(Left) - Blanquita Astorga MD Physical Therapy Treatment Note M2 PT-IP Current Condition Start: 02/21/24 15:58 Freq: NEEDED Status: Active Protocol: Document 02/21/24 15:59 KJ (Rec: 02/21/24 16:11 KJ [id number]) Physical Therapy Current Condition Current Condition Evaluation Date 02/21/24 Treatment Diagnosis impaired mobility Onset Date 12/30/23 M3 PT-IP Subjective Start: 02/21/24 15:58 Freq: NEEDED Status: Active Protocol: Document 02/23/24 12:59 AB (Rec: 02/23/24 13:00 AB [id number]) Subjective Physical Therapy Visit Type Type Administrative Note Notes Per EMPLOYMENT PROGRAMS ANALYST, pt requested to be d/ c'd from PT. EMPLOYMENT PROGRAMS ANALYST stated that pt is SBA with mobility/ ambulation using her crutches. M M7 PT-IP Assessment and Plan Start: 02/21/24 15:58 Freq: NEEDED Status: Active Protocol: Document 02/23/24 12:59 AB (Rec: 02/23/24 13:00 AB [id number]) PT Summary Assessment and Plan Frequency of Treatment Frequency Of Treatment Discharge
--- NOTE | 2024-02-23 14:19 | CM.DPNOTE ---
DCP Note GARMENT WORKER reviewed EMR. per previous CM, [facility] denied pt due to pt not being home bound with mobility. Per ortho PA note, had to redo cultures, results pending likely will know Sunday results for IV abx plan. GARMENT WORKER met with pt in room. Reported to her HH denied her due to mobility. Pt reports understanding. Pt reports she is unable to drive to OP appointments at this time. Her one friend helps with her wound care needs every few days but is having surgery herself in a month. Pt remains hopeful for home infusions and reports she would be unable to get to daily IV abx appointments. Pt unsure if she has Medicaid transportation benefit. Pt reports she is likely able to navigate once per week with a ride from friend. P: DCP continues to unfold. CM team will follow closely for IV abx need and wound care need. Likely will need referral to [facility] when cultures are known. likely will need OP wound care referral/pt looking to see if friend can assist with wound care need at home. CM team will f/u Sunday if pt has Medicaid transport benefits. DEVORAH Hampton
[2024-02-23 15:11] LABS: Vancomycin Peak 43.6 ug/mL (20-40)
[2024-02-23] MEDS: OXYCODONE IR 5 MG TABLET PO (19:52)
[2024-02-23] MEDS: SENNOSIDES 8.6 MG TABLET 17.2 MG PO (19:52)
[2024-02-23 20:05] VITALS: BP 139/96; PULSE 86; RESP 17; TEMP 35.8; O2SAT 100
--- NOTE | 2024-02-23 20:32 | PC.NURSE ---
Patient is alert and oriented. Breath sounds CTA with RA sat of 100%. HRR. Denies nausea. BT present and is passing flatus; did have a BM earlier today. Is voiding on BSC and denies any dysuria. Is able to turn herself in bed. Up to chair and BSC using crutches with PWB on left LE. CMS is intact although left foot is cool to touch related to use of ice pack so advised to leave off at this time. Agreeable to wearing right calf SCD when gotten back into bed. Left foot/LE is dressed with radha wrap covering and no drainage noted. Did complain of 5/10 achy type pain around incision site and was medicated with oxycodone. Fall risk score is high but patient calls appropriately and has made no attempts to get out of bed by herself so alarm is not activated at present time.
[2024-02-23] MEDS: VANCOMYCIN 750 MG/150 ML PIGGYBACK 150 MG IV (23:58)
--- NOTE | 2024-02-24 07:39 | DI.US.S_ITS ---
PROCEDURE: US PERIPH VENOUS LOW EXTREM LT INDICATIONS: POST-OP EDEMA TECHNIQUE: Real-time imaging, as well as color and pulse Doppler interrogation, were performed of the lower extremity deep veins from the inguinal ligament to the popliteal fossa, with documentation of the visualized calf veins. COMPARISON: None. FINDINGS: The common femoral, femoral, popliteal, and the visualized calf veins are normally compressible, and free of intraluminal thrombus. Color and pulse Doppler demonstrate normal phasic intraluminal flow. There is normal augmentation response to distal compression maneuver. IMPRESSION: No evidence of DVT in visualized left lower extremity veins. Dictated by: Juan Antonio Davis M.D. on 02/24/2024 at 9:53 Approved by: Juan Antonio Davis M.D. on 02/24/2024 at 9:54
--- NOTE | 2024-02-24 07:40 | PM.PNPO.1 ---
Subjective Subjective Date Patient Seen: 02/24/24 Time Patient Seen: 07:40 Interval history: Geraldine is sitting up in a chair, in a great mood, denies pain. Cultures still pending; anaerobic preliminarily negative, aerobic had to be re-incubated on 02/21. Exam Vital Signs (past 8 hours): Oxygen Delivery Method Room Air Oxygen Flow Rate 0 Narrative Exam Narrative: Pt able to wiggle toes, sensation to light touch intact throughout LLE. Calf is swollen and firm today, though not tender or warm to touch. MARY wrap CDI. Objective Labs 02/22/24 06:51 02/22/24 06:51 Labs: Laboratory Results - last 24 hr 02/23/24 02/23/24 11:35 14:30 Vancomycin Peak 43.6 H Vancomycin Trough 13.5 PFSH Medical History (Updated 02/23/24 @ 10:07 by Bhavna Clark PA-C) Elevated liver enzymes Hyperglycemia Vitamin D deficiency Alopecia (~2016) Anemia (~2014) Painful menstrual periods (~08/2012) Fibroids (~07/2014) Surgical History (Updated 02/19/24 @ 14:56 by Maylin Castellano RN) History of ankle surgery (01/09/24) Family History Father Diabetes mellitus Hypertension Brother No problems noted. Grandfather History of heart disease Grandmother History of heart disease Grandmother History of heart disease Social History household members: none Smoking Status: Never smoker alcohol intake: current Assessment & Plan Post-op Assessment and plan (1) Wound dehiscence, surgical: Assessment and Plan narrative: 1) Final cultures still pending. PICC in place. Per CM notes, approval for for infusions has been denied, and at this point they are looking into whether transportation for daily abx infusions at out center would be covered by insurance. Pt does not currently have reliable transportation. 2) Her calf is more swollen today. She has been getting ASA daily and has no other VTE risk factors such as smoking, DM, or personal/family hx. However, d/t limited mobility, I will order an US to r/o DVT. 3) Disposition pending final cultures and plan for treatment. D/c no sooner than tomorrow. Postoperative Procedures: Procedures Operation Date: 02/21/24 07:45 Actual Procedure Side Surgeon p Debridement surgical wound infection ankle Left Blanquita Astorga MD Postoperative day: 3 Quality VTE Deep Vein Thrombosis/Pulmonary Embolism Present on Admission: No
[2024-02-24] MEDS: ASPIRIN EC 325 MG TABLET PO (08:23)
[2024-02-24] MEDS: DOCUSATE 100 MG CAPSULE PO ×2 (08:23→21:14)
[2024-02-24] MEDS: VANCOMYCIN 750 MG/150 ML PIGGYBACK 150 MG IV ×3 (08:23→23:10)
[2024-02-24] MEDS: SODIUM CHLORIDE 0.9% FLUSH 10 ML IV ×2 (08:24→21:15)
[2024-02-24] MEDS: polyethylene glycoL 3350 17 GM POWD.PACK PO (08:24)
[2024-02-24 08:29] VITALS: BP 143/106; PULSE 77; RESP 17; TEMP 36.8; O2SAT 100
[2024-02-24] MEDS: CEFEPIME 1 GM in SODIUM CHLORIDE 0.9% 100 ML IV ×2 (09:38→22:09)
[2024-02-24] MEDS: IBUPROFEN 400 MG TABLET PO (15:46)
[2024-02-24] MEDS: ACETAMINOPHEN 325 MG TABLET 650 MG PO (15:46)
[2024-02-24 20:13] VITALS: BP 130/72; PULSE 74; RESP 18; TEMP 37; O2SAT 98
[2024-02-24] MEDS: SENNOSIDES 8.6 MG TABLET 17.2 MG PO (21:14)
[2024-02-25] MEDS: VANCOMYCIN TROUGH 1 REQUEST MISC (07:45)
[2024-02-25 07:56] VITALS: BP 133/99; PULSE 75; RESP 16; TEMP 36.4; O2SAT 99
[2024-02-25 09:09] LABS: Vancomycin Trough 45.8 ug/mL (10-20)
[2024-02-25] MEDS: DOCUSATE 100 MG CAPSULE PO ×2 (09:51→20:05)
[2024-02-25] MEDS: SODIUM CHLORIDE 0.9% FLUSH 10 ML IV ×2 (09:51→20:06)
[2024-02-25] MEDS: polyethylene glycoL 3350 17 GM POWD.PACK PO (09:51)
[2024-02-25] MEDS: ASPIRIN EC 325 MG TABLET PO (09:51)
--- NOTE | 2024-02-25 10:05 | P.PN_ITS ---
Subjective Subjective Date Patient Seen: 02/25/24 Time Patient Seen: 16:11 Interval history: Geraldine is sitting up in a chair, in great spirits, as always. Good pain control, continues to work w/ PT. Preliminary cultures are back, but still awaiting finals. Exam Vital Signs (past 8 hours): - 02/25/24 07:56 Temperature 97.6 F Pulse Rate 75 Respiratory Rate 16 Blood Pressure 133/99 H Pulse Oximetry 99 Oxygen Flow Rate 0 Oxygen Delivery Method Room Air Oxygen Flow Rate 0 Narrative Exam Narrative: LLE US done yesterday was negative for DVT. Dressing changed today; cleansed w/ chlorhexadine, sterile xeroform, gauze, kerlix replaced, overwrapped w/ MARY. No active drainage from incision, no swelling or pain to touch. Calf remains somewhat firm to touch, but nontender and swelling is less noticeable than yesterday. Pt able to wiggle toes, sensation to light touch intact throughout LE. Objective Labs 02/22/24 06:51 02/25/24 09:45 Labs: Laboratory Results - last 24 hr 02/25/24 08:02 Vancomycin Trough 45.8 H* [facility] Medical History (Updated 02/23/24 @ 10:07 by Bhavna Clark PA-C) Elevated liver enzymes Hyperglycemia Vitamin D deficiency Alopecia (~2016) Anemia (~2014) Painful menstrual periods (~08/2012) Fibroids (~07/2014) Surgical History (Updated 02/19/24 @ 14:56 by Maylin Castellano RN) History of ankle surgery (01/09/24) Family History Father Diabetes mellitus Hypertension Brother No problems noted. Grandfather History of heart disease Grandmother History of heart disease Grandmother History of heart disease Social History household members: none Smoking Status: Never smoker alcohol intake: current Assessment & Plan Post-op Assessment and plan (1) Wound dehiscence, surgical: Assessment and Plan narrative: 1) I spoke to Sona in microbiology. Prelim identification of organism is GNB, Neisseria spp. Sending to [facility] this morning for confirmation of identification and sensitivities. I also confirmed w/ both lab and that a PCR specimen was never sent. 2) Per convo btwn Dr Astorga and Dr Poole @ [facility] infectious disease today: - Ok to d/c vanco and cefepime. Because there is still a possibility of anaerobes, will change to Unasyn while inpt. If anaerobic final cx is negative, can change to ceftriaxone 2g IV q 24 hrs while inpt. - Pt has two cats and one dog who live with her in her RV. She does have concerns about keeping her PICC clean. Given this, she may be a candidate for oral augmentin at d/c, but again, will need to wait for final sensitivities. 3) Will continue PICC for now until final cx results are back. Final AERobic cultures need to show sensitivity to oral agents and final ANAERobic cultures need to be negative for organisms in order for pt to go home on oral agents. 4) Continue PWB on LLE to 25% while in boot, with increase of 25% weekly. Pt may have boot off when NWB for gentle ankle ROM. 5) Continue daily ASA 325mg for VTE prophylaxis. Postoperative Procedures: Procedures Operation Date: 02/21/24 07:45 Actual Procedure Side Surgeon p Debridement surgical wound infection ankle Left Blanquita Astorga MD Postoperative day: 4 Quality VTE Deep Vein Thrombosis/Pulmonary Embolism Present on Admission: No
[2024-02-25 10:11] LABS: BUN Creatinine Ratio 15.9 (6-22); Blood Urea Nitrogen 10 mg/dL (7-17); Calcium 8.8 mg/dL (8.4-10.2); Carbon Dioxide 24 mmol/L (22-32); Chloride 107 mmol/L (98-107); Estimated Glomerular Filt Rate > 60 mL/min (>60); Glucose 116 mg/dL (70-100); HEMOLYSIS < 15 (0-50); Potassium 4.2 mmol/L (3.4-5.1); Sodium 136 mmol/L (137-145)
[2024-02-25 10:16] LABS: Vancomycin Trough 10.6 ug/mL (10-20)
[2024-02-25] MEDS: CEFEPIME 1 GM in SODIUM CHLORIDE 0.9% 100 ML IV (11:07)
[2024-02-25] MEDS: VANCOMYCIN 1,250 MG/250 ML PIGGYBACK 200 MG IV (12:48)
[2024-02-25] MEDS: AMPICILLIN/SULBACTAM 3 GM 3 GM in SODIUM CHLORIDE 0.9% 100 ML IV ×2 (14:06→19:55)
--- NOTE | 2024-02-25 14:28 | CM.DPNOTE ---
DCP Note SOLAR ENERGY CONSULTANT AND DESIGNER reviewed EMR. Per RN, currently no growth for cultures and no current concrete IV abx plan. Per RN, ortho PA reported that IV abx likely due to infection coming from the hardware itself. Per RN, believed to be a small incision and no major wound care needs are likely. SOLAR ENERGY CONSULTANT AND DESIGNER spoke with [facility], confirmed pt has transportation benefits under her Medicaid. SOLAR ENERGY CONSULTANT AND DESIGNER met with pt and friend Carmel in room. Reviewed that we still do not have the abx plan known. Answered inf solutions questions, that they do not come to administer the IV med, just provider the materials and the teaching initially. Pt reports being squeemish and unsure if she can manage that at home. Pt preference would be to come in once per day if needed for IV abx. SOLAR ENERGY CONSULTANT AND DESIGNER explained that in part is dependent on frequency of dosing, OP appointments are manageable once per day but if needed more frequently would likely need to be OP. Pt and friend expressed understanding. SOLAR ENERGY CONSULTANT AND DESIGNER gave pt contact information for Medicaid transport to and from doctors appointments. DCP continues to unfold. CM team will follow closely for IV abx need and wound care need. If IV abx, infusion solution vs OP referral needed. CM team will continue to follow closely DEVORAH Hampton
[2024-02-25 19:52] VITALS: BP 145/92; PULSE 78; RESP 18; TEMP 36.5; O2SAT 97
[2024-02-25] MEDS: IBUPROFEN 400 MG TABLET PO (20:05)
[2024-02-25] MEDS: SENNOSIDES 8.6 MG TABLET 17.2 MG PO (20:05)
[2024-02-26] MEDS: AMPICILLIN/SULBACTAM 3 GM 3 GM in SODIUM CHLORIDE 0.9% 100 ML IV ×4 (02:29→20:21)
--- NOTE | 2024-02-26 07:27 | PM.PNPO.1 ---
Subjective Subjective Date Patient Seen: 02/26/24 Time Patient Seen: 07:27 Interval history: Displaced left ankle I and D for postsurgical infection. Preliminary growth gram-negative bacteria neisseria animaloris --patient does have 2 cats and a dog--lives in a trailer/mobile home Switch to Unasyn yesterday tolerating well. Very pleasant good spirits. States she has friends taken care of the pets. Exam Vital Signs (past 8 hours): Oxygen Delivery Method Room Air Oxygen Flow Rate 0 Narrative Exam Narrative: Alert oriented no acute distress. Left ankle dressing change today sutures intact no erythema no drainage no significant swelling. Wiggles toes calf is soft. Clean dressing applied. Objective Labs 02/22/24 06:51 02/25/24 09:45 Labs: Laboratory Results - last 24 hr 02/25/24 02/25/24 08:02 09:45 Sodium 136 L Potassium 4.2 Chloride 107 Carbon Dioxide 24 BUN 10 Creatinine 0.63 Estimated GFR > 60 BUN/Creatinine Ratio 15.9 Glucose 116 H Calcium 8.8 Vancomycin Trough 45.8 H* 10.6 PFSH Medical History (Updated 02/23/24 @ 10:07 by Bhavna Clark PA-C) Elevated liver enzymes Hyperglycemia Vitamin D deficiency Alopecia (~2016) Anemia (~2014) Painful menstrual periods (~08/2012) Fibroids (~07/2014) Surgical History (Updated 02/19/24 @ 14:56 by Maylin Castellano RN) History of ankle surgery (01/09/24) Family History Father Diabetes mellitus Hypertension Brother No problems noted. Grandfather History of heart disease Grandmother History of heart disease Grandmother History of heart disease Social History household members: none Smoking Status: Never smoker alcohol intake: current Assessment & Plan Post-op Postoperative Procedures: Procedures Operation Date: 02/21/24 07:45 Actual Procedure Side Surgeon p Debridement surgical wound infection ankle Left Blanquita Astorga MD Postoperative status: doing well Postoperative plan narrative: Continue advanced weight-bearing 25% each week in the boot. Dressing changes as needed. Keep sutures clean and dry. Continue to follow cultures were made these finalized for discharge plans as final organisms will impact antibiotic choice and requirement of IV versus oral which will also be made in conjunction with evaluating social and environmental situation. I have discussed this patient with Dr. Keke Weeks at [facility]. Await final cultures--continue Unasyn. Patient requires continued inpatient admission for IV antibiotics for deep wound infection with underlying hardware. Quality VTE Deep Vein Thrombosis/Pulmonary Embolism Present on Admission: No
[2024-02-26 07:59] VITALS: BP 129/85; PULSE 73; RESP 19; TEMP 36.3; O2SAT 99
[2024-02-26] MEDS: SODIUM CHLORIDE 0.9% FLUSH 10 ML IV ×2 (08:25→20:22)
[2024-02-26] MEDS: ASPIRIN EC 325 MG TABLET PO (08:25)
[2024-02-26] MEDS: polyethylene glycoL 3350 17 GM POWD.PACK PO (08:25)
[2024-02-26] MEDS: DOCUSATE 100 MG CAPSULE PO ×2 (08:25→20:21)
--- NOTE | 2024-02-26 12:34 | CM.DPNOTE ---
Addendum entered by DEVORAH Hampton 02/26/24 15:44: From Kevin at [facility], pt fully covered for the antibiotic. Has nursing availability for Wed at 1:30pm. Will touch base with this CM team in morning. SL Original Note: DCP note MUSIC COMPOSER reviewed EMR. Per Dr. Astorga note, plan for Unasyn/Ampicillin 3gm Q6H, stop date unknown. Reviewed with Dr. Poole. Final cultures remain pending. MUSIC COMPOSER spoke with Kevin from [facility]. reviewed pt need. Agreed to review. JOHN Turner kindly agreed to fax referral information. Discussed pt in multidisciplinary rounds. Per pharmacy team, pt likely could be able to take PO Augmentin for 14+ days. Will present option to ortho team. 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 DCP continues to unfold. CM team will follow closely for IV abx need and wound care need. If IV abx, continue to coordinate with infusion solutions. If PO abx, cancel referral with [facility]. CM team will continue to follow closely DEVORAH Hampton
[2024-02-26] MEDS: IBUPROFEN 400 MG TABLET PO (19:08)
[2024-02-26 20:00] VITALS: BP 136/89; PULSE 87; RESP 16; TEMP 36.9; O2SAT 100
[2024-02-26] MEDS: SENNOSIDES 8.6 MG TABLET 17.2 MG PO (20:21)
[2024-02-27] MEDS: AMPICILLIN/SULBACTAM 3 GM 3 GM in SODIUM CHLORIDE 0.9% 100 ML IV ×3 (02:18→14:08)
--- NOTE | 2024-02-27 07:25 | PM.PREOP ---
Pre-operative Note Interval Note History & Physical reviewed/Exam performed by Physician: Yes Changes to H&P: No
[2024-02-27] MEDS: DOCUSATE 100 MG CAPSULE PO ×2 (08:27→20:49)
[2024-02-27] MEDS: ASPIRIN EC 325 MG TABLET PO (08:27)
[2024-02-27] MEDS: polyethylene glycoL 3350 17 GM POWD.PACK PO (08:27)
[2024-02-27] MEDS: SODIUM CHLORIDE 0.9% FLUSH 10 ML IV ×2 (08:27→21:01)
--- NOTE | 2024-02-27 08:52 | DIET.CONS2 ---
Dietary Inpatient Consultation Note Admission Date: 02/21/2024 06:53 49 y F admitted s/p ankle I&D. Nutrition screened for LOS. Chart reviewed. Recorded PO intakes 75-100%, DFM checked for meal composition. UBW 88.45-94.8 kg. No recent weight loss. No nutritional interventions needed at this time. Diet: 02/21/24 Lunch General (Regular) Diet Diet Modifications: Food Texture: Level 7 - Regular Liquid Consistency: Level 0 - Thin Nutrition Percent Meal Consumed 100% 02/26/24 17:59 Percent Meal Consumed 100% 02/25/24 12:55 Electronically Signed by: Dayna Gregorio 02/27/24 08:52 Clinical Dietitian [address] [address]
--- NOTE | 2024-02-27 10:32 | PM.PNPO.1 ---
Subjective Subjective Date Patient Seen: 02/27/24 Time Patient Seen: 10:32 Interval history: Patient is found sitting in a chair watching TV. She is in excellent spirits. She has been working with physical therapy and pain is controlled with oral medications on an as-needed basis. Still awaiting final culture and sensitivity of the organisms. Exam Vital Signs (past 8 hours): Oxygen Delivery Method Room Air Oxygen Flow Rate 0 Narrative Exam Narrative: Dressing is well-maintained no signs of drainage. Patient is able to dorsiflex and plantar flex at the ankle with limited range of motion. She is able to manipulate all 5 digits. Sensation intact to light touch throughout the left lower extremity. Resp Effort & Inspection: normal respiratory effort and able to speak in complete sentences Objective Labs 02/22/24 06:51 02/25/24 09:45 [facility] Medical History (Updated 02/23/24 @ 10:07 by Bhavna Clark PA-C) Elevated liver enzymes Hyperglycemia Vitamin D deficiency Alopecia (~2016) Anemia (~2014) Painful menstrual periods (~08/2012) Fibroids (~07/2014) Surgical History (Updated 02/19/24 @ 14:56 by Maylin Castellano RN) History of ankle surgery (01/09/24) Family History Father Diabetes mellitus Hypertension Brother No problems noted. Grandfather History of heart disease Grandmother History of heart disease Grandmother History of heart disease Social History household members: none Smoking Status: Never smoker alcohol intake: current Assessment & Plan Post-op Postoperative Procedures: Procedures Operation Date: 02/21/24 07:45 Actual Procedure Side Surgeon p Debridement surgical wound infection ankle Left Blanquita Astorga MD Postoperative day: 6 Postoperative status: doing well Postoperative plan: routine post-op care Postoperative plan narrative: Discussed with the patient that we are still awaiting final culture and sensitivity to be reported. Patient understood. Continue advanced weight-bearing 25% each week in the boot. Dressing changes as needed. Keep sutures clean and dry. Continue to follow cultures. Once finalized review discharge plans as final organisms will impact antibiotic choice and requirement of IV versus oral which will also be made in conjunction with evaluating social and environmental situation. If anaerobic final cx is negative, can change to ceftriaxone 2g IV q 24 hrs while inpt. - Pt has two cats and one dog who live with her in her RV. She does have concerns about keeping her PICC clean. Given this, she may be a candidate for oral augmentin at discharge. Will continue PICC for now until final cultures results return. Final AERobic cultures need to show sensitivity to oral agents and final ANAERobic cultures need to be negative for organisms in order for pt to go home on oral agents. Continue aspirin 325 mg daily for VTE prevention. Patient requires continued inpatient admission for IV Unasyn for deep wound infection with underlying hardware. Time Spent With Patient Time with patient: 15-24 minutes Quality VTE Deep Vein Thrombosis/Pulmonary Embolism Present on Admission: No
[2024-02-27] MEDS: OXYCODONE IR 5 MG TABLET PO ×2 (17:24→20:50)
[2024-02-27 20:06] VITALS: BP 134/85; PULSE 75; RESP 19; TEMP 36.2; O2SAT 96
[2024-02-27] MEDS: AMOXICILLIN/CLAV 875/125 MG 1 TAB PO (20:49)
[2024-02-27] MEDS: SENNOSIDES 8.6 MG TABLET 17.2 MG PO (20:51)
[2024-02-27] MEDS: ACETAMINOPHEN 325 MG TABLET 650 MG PO (20:52)
--- NOTE | 2024-02-28 07:48 | P.DS_ITS ---
History of Present Illness History of Present Illness Chief complaint: Debridement surgical wound infection left ankle Narrative: Geraldine 49 year old female who is POD#7 s/p left ankle debridement by Dr. Astorga. Patient lives alone but has a friend who lives near by who helps take care of her and drive her to and from appts. Overall patient reports she is doing well, she expresses gratitude for the care she has received at the hospital so far. Pain is moderate but well controlled w/ oral pain medication. No questions or concerns for me this morning. She is urinating well w/o issue. Has been working w/ PT w/ good results. Denies fever, chills, chest pain, SOB, nausea, vomiting. Operative Date/Time/Diagnoses Date of procedure: 02/21/24 Time of procedure: 07:34 Pre-op diagnosis: Ankle surgical wound infection, left ankle fracture dislocation Post-op diagnosis: same Procedure & Clinicians Procedure: Debridement skin subcutaneous tissue down to the level of the fibular hardware left ankle CPT code 86595 Same procedure as scheduled: Yes Indications: Patient is a 49-year-old female who sustained a left ankle fracture dislocation. She underwent open reduction internal fixation for this January 09, 2024. At her 1st postop she had a lot of scabbing and some dehiscence around the incision. She had not have erythema. This was treated with Betadine paints and oral antibiotics. When she presented for wound check the appearance was unchanged with persistent drainage. She was indicated for formal debridement and is brought to surgery today for this. We discussed possible need for additional surgeries or staged removal of hardware after fracture is healed. At this point goal would be implant retention for fracture healing and infection treatment with appropriate antibiotics. The risks and benefits of the procedure have been discussed with the patient and given the opportunity to ask questions. The risks of surgery include but are not limited to infection, need for additional surgery, malunion, nonunion, persistence of pain, damage to nerves and blood vessels, posttraumatic arthritis, DVT, PE, coardiopulmonary complications and . The patient expressed a thorough understanding of the risks and benefits of surgery and has elected to proceed. Consent was signed, Surgeon: Blanquita Astorga Click Yes if Unassisted: Yes Anesthesia Type: General and Local Denies fever, chills, chest pain, SOB, nausea, vomiting. Discharge Providers Provider Date of admission: 02/21/24 06:53 Discharge Date: 02/28/24 Primary care physician: Brent Frost MD Consults: 02/21/24 09:53 Consult to Discharge Planning Routine Comment: Consult to Discharge Planning Routine Comment: possible picc and IV abx for home Consult to Occupational Therapy Evaluate & Treat Comment: Physician Instructions: Evaluate and treat Consult to Occupational Therapy Evaluate & Treat Comment: Physician Instructions: Evaluate and treat Consult to Physical Therapy Evaluate & Treat Comment: Physician Instructions: Evaluate and Treat Consult to Physical Therapy Evaluate & Treat Comment: partial wb Physician Instructions: Evaluate and Treat 02/22/24 12:54 Consult to Home Health Routine Comment: Closed fibular fracture, L wound infection Reason For Exam: RN, PT, OT Discharge provider: Jennie David PA-C Summary Hospital Course Discharge Diagnosis: stable s/p left ankle debridement Hospital Course: Hospital course complicated by deep wound infection and need for IV abx, she had a PICC line placed on 02/22/24. We were awaiting final cultures to tailor abx prior to d/c. She also had calf swelling on 02/24/24, US ordered and resulted negative for DVT. Exam Vital Signs (past 8 hours): Oxygen Delivery Method Room Air Oxygen Flow Rate 0 Narrative Exam Narrative: Patient sitting comfortably in bedside chair during our interview today. No acute distress. AOx3. Grossly normal alignment of the LLE. Mild-moderate left ankle swelling. 5/5 strength with DF, PF, EHL bilaterally. Gross sensation intact throughout bilateral lower extremities. Calves soft and non-tender bilaterally. Post-surgical dressings are clean, dry and intact. Objective Labs 02/22/24 06:51 02/25/24 09:45 [facility] Medical History (Updated 02/23/24 @ 10:07 by Bhavna Clark PA-C) Elevated liver enzymes Hyperglycemia Vitamin D deficiency Alopecia (~2016) Anemia (~2014) Painful menstrual periods (~08/2012) Fibroids (~07/2014) Surgical History (Updated 02/19/24 @ 14:56 by Maylin Castellano RN) History of ankle surgery (01/09/24) Family History Father Diabetes mellitus Hypertension Brother No problems noted. Grandfather History of heart disease Grandmother History of heart disease Grandmother History of heart disease Social History household members: none Smoking Status: Never smoker alcohol intake: current Discharge Assessment & Plan Assessment and Plan Assessment: left ankle fracture dislocation w/ deep tissue surgical wound infection s/p debridement skin subcutaneous tissue down to the level of the fibular hardware left ankle. Plan of Treatment: 1) Plan to discharge to home today with friend, need to have PICC removed first. 2) Continue multimodal pain management. Patient has pain medication at home already from her first surgery. Patient will be d/c on Augmentin 875 b.i.d. x4 weeks to start with and will be followed by ID. 3) ASA 325mg PO daily for DVT prophylaxis. 4) Continue PWB on LLE to 25% while in boot, with increase of 25% weekly. Pt may have boot off when NWB for gentle ankle ROM. 5) Keep dressing clean and dry. Dressing changed may be performed as needed. No soaking the incision site in pools or tubs. No topical ointments or creams to the incision site. 6) Follow up at [facility] w/ Dr. Astorga in 2 weeks for a postop appointment and wound check. All patient's questions were answered, she demonstrates understanding and is in agreement with the plan. Call our office if any questions or concerns arise. Discharge Plan Discharge Plan Patient Disposition: Home Provider Discharge Comment: aspirin for DVT prophylaxis for 6 weeks. Discharge orders & Medications Prescriptions: New acetaminophen 325 mg Tablet 650 mg PO Q6H PRN (Reason: Fever/Mild Pain (1-3)) Qty: 90 0RF amoxicillin-pot clavulanate 875-125 mg Tablet 1 tab PO BID 28 Days Qty: 56 0RF ibuprofen 400 mg Tablet 400 mg PO Q4H PRN (Reason: Pain, Mild (1-3)) Qty: 90 0RF ondansetron 4 mg Tablet,Disintegrating 4 mg PO Q4HR PRN (Reason: Nausea And Vomiting) Qty: 10 0RF oxycodone 5 mg Tablet 5 mg PO Q4-6H PRN (Reason: Pain, Moderate (4-6)) Qty: 30 0RF Continued aspirin 325 mg tablet,delayed release (DR/EC) 325 mg PO DAILY Follow up/Referrals: Blanquita Astorga MD [Physician] - (Follow up in one week w/ Dr. Astorga at [facility]. ) Brent Frost MD [Primary Care Provider] - Activity Restrictions/Additional Instructions: Nonweightbearing or touchdown for balance x6 weeks. Progressive weight-bearing 25% each week in a walking boot. May come out of boot for range of motion. Diet/Activity/Treatments Diet: Diet as Tolerated Skin/Wound/Dressing Care Report to your healthcare provider any signs of infection, such as:: chills, fever, night sweats, unusual drainage and unusual redness Dressing: Keep dressing intact, clean and dry until post-op appointment. No soaking the incision site in pools or tubs. No topical ointments or creams to the incision site. Visit Report/Discharge Packet Instructions: DI for Prescription Opioid Use, [facility]: Wound Care Stand Alone Forms: Patient Portal/API, Stroke Signs & Symptoms Discharge Data Primary Care Provider: Brent Frost Quality VTE Deep Vein Thrombosis/Pulmonary Embolism Present on Admission: No
[2024-02-28 08:40] VITALS: BP 122/89; PULSE 80; RESP 16; TEMP 36.6
--- NOTE | 2024-02-28 08:47 | CM.DPC ---
DCP Discharge Home Per Ortho , pt's cultures returned and after discussion with Dr. Zulema ESCOBEDO MD determined pt can discharge on PO abx for 4 weeks and medically stable to discharge home today and PICC to be removed. SW called [facility] and updated on change from IV to PO abx at discharge. Per RN, PICC to be removed closer to discharge time when transport can arrive. SW met bedside with pt and explained role and pt very appreciative and confirms she is in agreement with discharge home today and so thankful to be on PO abx and that her friend who lives in [place] will provide transport home around lunchtime today. Pt feels she was given good tips and tricks from PT/OT and feels she can manage at home and no further concerns at this time. Requesting meds be filled at [facility]. Pt not homebound and [facility] and [facility] declined as she does not meet criteria. ELVIS updated RN. Plan: Patient to discharge home today via friend POV and PO abx with outpt f/u with Ortho. No further SW needs at this time. Halle Addison MSW
[2024-02-28] MEDS: ASPIRIN EC 325 MG TABLET PO (10:03)
[2024-02-28] MEDS: DOCUSATE 100 MG CAPSULE PO (10:03)
[2024-02-28] MEDS: polyethylene glycoL 3350 17 GM POWD.PACK PO (10:03)
[2024-02-28] MEDS: AMOXICILLIN/CLAV 875/125 MG 1 TAB PO (10:03)
[2024-02-28] MEDS: SODIUM CHLORIDE 0.9% FLUSH 10 ML IV (10:04)
--- NOTE | 2024-02-28 12:20 | PC.NURSE ---
PICC line removed. Discussed follow up, antibiotic treatment, worsening symptoms, and follow up appts. No further questions. Wheeled out by [facility] via WC to private vehicle.
== END 2024-02-28 12:15 | disposition home or self-care (01) | DRG 383 ==
PROVIDERS: Admitting Provider Orthopaedic Surgery Foot and Ankle Surgery; PCP Family Medicine; Referring Provider Orthopaedic Surgery Foot and Ankle Surgery; Visit Provider Orthopaedic Surgery Foot and Ankle Surgery
PROC: 0JBR0ZZ Excision of Left Foot Subcutaneous Tissue and Fascia, Open Approach (ICD-10-PCS; principal; 2024-02-21 07:45)
DX: L08.89 Other specified local infections of the skin and subcutaneous tissue (principal); T81.42XA Infection following a procedure, deep incisional surgical site, initial encounter; S82.892D Other fracture of left lower leg, subsequent encounter for closed fracture with routine healing; T81.31XA Disruption of external operation (surgical) wound, not elsewhere classified, initial encounter; B96.89 Other specified bacterial agents as the cause of diseases classified elsewhere; M79.89 Other specified soft tissue disorders; X58.XXXD Exposure to other specified factors, subsequent encounter
CPT/HCPCS: 36415; 36573; 80048; 80053; 80202; 82962; 85025; 85651; 86140; 87070; 87075; 87077; 87185; 87205; 93971; 97116; 97161; 97165; 97530; J0295; J0690; J0692; J1100; J1170; J1642; J1885; J2250; J2405; J2704; J3010; J3410

== ENCOUNTER → 2024-04-20 11:41 | Outpatient (CLI) | payer OTHER, MEDICAID, SELFPAY ==
[2024-02-21 12:15] VITALS: BMI 33.9
--- NOTE | 2024-04-20 11:46 | DI.CT.S_ITS ---
PROCEDURE: CT LE LT W CON INDICATIONS: EVALUATE FOR FRACTURE HEALING TECHNIQUE: Noncontrast 1-1.5 mm axial sections acquired from above the tibiotalar joint to the bottom of the calcaneus, with coronal and sagittal reformats. COMPARISON: [facility], CR, XR ANKLE 3 VIEWS WEIGHT BEARING LEFT, 04/11/2024, 15:39. [facility], CR, XR ANKLE 3 VIEWS WEIGHT BEARING LEFT, 03/14/2024, 14:48. [facility], CR, XR ANKLE 3+ VIEWS LEFT, 02/19/2024, 12:24. [facility], CR, XR ANKLE LT MIN 3V, 12/30/2023, 8:24. FINDINGS: Image quality: Excellent. Bones: Mild osseous demineralization. Status post prior tibiotalar dislocation with slight asymmetric widening of the medial clear space (4/58) and bimalleolar fracture status post lateral plate and screw fixation and syndesmotic tightrope fixation. No hardware complication. Persistently visible fracture planes at the level of the medial malleolus fracture (2/40). Persistently visible fracture planes of the comminuted spiral fibular fracture (5/46). Joints: Small tibiotalar joint effusion. Punctate calcific fragments are present at the expected locations of the lateral and deltoid ligaments, likely indicative of ligamentous avulsion (2/43; 2/47). Small ossific fragment along the expected location of the posterior inferior syndesmotic ligament (2/40). The anterior process of the calcaneus is preserved. No talar dome osteochondral defect. Muscles: Mild diffuse atrophy of the lower calf and plantar foot musculature. Tendons: Evaluation of peroneal tendons obscured due to streak artifact from internal fixation hardware. Other visualized flexor and extensor tendons within normal limits. Achilles tendon within normal limits. Other soft tissues: Mild diffuse circumferential subcutaneous edema. No drainable fluid collection. IMPRESSION: Status post prior tibiotalar dislocation and bimalleolar fracture and subsequent internal fixation, with ongoing healing of the fracture planes at the lateral malleolus and posterior malleolus. Dictated by: Quang Connor M.D. on 04/20/2024 at 18:45 Approved by: Quang Connor M.D. on 04/20/2024 at 18:55
== END ==
LOC: CT 11:44
PROVIDERS: PCP Family Medicine; Referring Provider Orthopaedic Surgery Foot and Ankle Surgery; Visit Provider Orthopaedic Surgery Foot and Ankle Surgery
DX: S82.892D Other fracture of left lower leg, subsequent encounter for closed fracture with routine healing (principal); X58.XXXD Exposure to other specified factors, subsequent encounter
CPT/HCPCS: 73700

== ENCOUNTER 2024-05-21 12:13 | Day surgery (SDC) | payer OTHER, MEDICAID, SELFPAY ==
[2024-02-21 12:15] VITALS: BMI 33.9
[2024-05-19 14:45] VITALS: BMI 33.7
[2024-05-21] VITALS (7 sets, daily range): BP systolic 129–174; BP diastolic 79–113; PULSE 74–99; RESP 2–17; TEMP 36–36.4; O2SAT 93–97; BMI 33.0
--- NOTE | 2024-05-21 | PATH_ITS ---
[facility] Accession Number: [id number] No. of containers..01 Tissue . 01 Material submitted: . tibia - L TIBIA . 01 Diagnosis: SOFT TISSUE, LEFT TIBIA, EXCISION: Fibroadipose tissue and skeletal muscle with mild chronic inflammation, hemosiderin deposition, and with reactive changes. [facility] 05/23/2024 1036 Local . 01 Comment: The histologic features are nonspecific. Clinical correlation is recommended. . 01 Electronically signed: . Penny Caceres MD, Pathologist NPI- [id number] . 01 Gross description: . Received in formalin with two patient identifiers and left tibia, are three irregular soft tissue fragments (0.4 x 0.4 x 0.2 cm to 1.2 x 1.0 x 0.3 cm). No bone is identified, and the specimen is submitted entirely in A1. ([id number]) /MRV 05/22/2024 1935 Local . 01 Pathologist provided ICD-10: S82.892D . 01 CPT . 698336 Performed at: [address] [address], [place], [place] [id number] MD Mark Myers MD Phone: [phone]
[2024-05-21] MEDS: ACETAMINOPHEN 325 MG TABLET 975 MG PO (12:54)
[2024-05-21] MEDS: SCOPOLAMINE 1 PATCH TOP (12:55)
[2024-05-21] MEDS: LACTATED RINGERS 1,000 ML 42 ML IV (12:55)
--- NOTE | 2024-05-21 14:48 | PM.PREOP ---
Pre-operative Note Interval Note History & Physical reviewed/Exam performed by Physician: Yes Changes to H&P: No
--- NOTE | 2024-05-21 15:01 | P.OP_ITS ---
Operative Date/Time/Diagnoses Date of procedure: 05/21/24 Time of procedure: 15:15 Pre-op diagnosis: Left ankle hardware infection Post-op diagnosis: same Procedure & Clinicians Procedure: Removal of deep implant left ankle lateral plate and screws CPT code 94074 Removal of deep implant left ankle medial hardware CPT code 44787 with modifier 59 for separate incision separate site Procedure was performed with modifier 58 for staged removal of hardware for eradication of infection, planned hardware removal procedure after treatment with IV antibiotics. Same procedure as scheduled: Yes Indications: The patient is a 41 old female had a left ankle fracture dislocation. She had a postoperative wound infection related to her animal exposure. She was treated with Infectious Disease with IV antibiotics and a washout. She is now completed 3 months of IV and oral antibiotics but continues to have wound healing difficulties and concern for deep infection. She is healed her fractures and has been indicated for hardware removal. This is a staged procedure planned to help with the eradication of her organism. The risks and benefits of the procedure have been discussed with the patient and given the opportunity to ask questions. The risks of surgery include but are not limited to infection, malunion, nonunion, persistence of pain, damage to nerves and blood vessels, posttraumatic arthritis, DVT, PE, cardiopulmonary complications and . The patient expressed a thorough understanding of the risks and benefits of surgery and has elected to proceed. Consent was signed Surgeon: Blanquita Astorga Click Yes if Unassisted: Yes Anesthesia Type: General and Local Operative Notes Findings: Fibrinous tissue along lateral incision approximately 14 cm moderate swelling. No erythema. Entire previous lateral incision was excised sharply. Dissection was taken down to the level of the fibula bone. Peroneal tendons were exposed. There were some tendinosis along the peroneus longus. They were otherwise intact. Lateral plate and screws was removed. The inter frag screw was removed. Prominences were rongeured off. Deep tissue and fibula periosteum was sent for Gram stain, aerobic and anaerobic cultures, bacterial PCR and pathology. Separate incision made to remove medial syndesmotic button. The syndesmotic sutures were removed. Fluoroscopic stress exam demonstrated fracture healing and mortise stability. Closure Type: primary Specimen(s): none sent Prosthetic devices, grafts, tissues, transplants, or devices: None Estimated Blood Loss (mL): 20 Blood products transfused: none Tourniquet time (min): 2 Procedure in detail: Patient was seen in the preoperative area the site of surgery was marked this was the left ankle. Consent was confirmed she was brought back to the operating room by the anesthesia team. IV antibiotic was ertapenem discussed with Infectious Disease. Bony prominences were well padded. Left lower extremity was prepped and draped standard sterile fashion a formal time-out procedure was performed confirming the patient's side and site of surgery administration of appropriate antibiotic. All were in agreement. Tourniquet was raised. Of note this was soon venous and was released and left down for the remainder of the procedure. The entire lateral incision with fibrinous tissue was excised sharply and ellipsed sized out with a scalpel blade. This was a full-thickness excision. Deep tissues were exposed down to the peroneal tendons and then to the periosteum the fibula into the posterior lateral plate. The posterolateral plate and screws were removed. The bony prominence rongeured off and periosteum was sent for culture and pathology and bacterial PCR. No purulence was encountered. The wound was then thoroughly irrigated and debrided. A separate incision was made anteromedially down through the skin subcutaneous tissue to the level of the anteromedial distal tibia. The syndesmotic suture button device was isolated. The contralateral side of the side been cut on through the lateral incision in the medial button and sutures removed. Once this was completed fluoroscopic imaging was brought in and confirmed all hardware removal. The ankle was placed through a stress examination that demonstrated stability of the mortise and healed fractures. The anteromedial wound was then thoroughly irrigated with saline. Gloves were changed and the wounds were closed with 2-0 PDS 4-0 Monocryl and 2-0 and 3-0 nylon suture. This approximated well. A soft dressing was placed with Xeroform gauze Kerlix and an Ji wrap. 0.25% Marcaine with epinephrine was used as local anesthesia. The drapes were removed. Counts were correct. The patient was awoken from anesthesia and taken to the recovery room in good condition there were no immediate complications from this procedure. Counts were correct. Complications: none Post-operative Condition: stable Disposition: PACU Plan for aftercare: Weightbear as tolerated in a postoperative boot. Keep incisions clean dry and intact until follow up in orthopedic clinic. We will have an antibiotic management plan dictated by [facility] Infectious Disease
[2024-05-21] MEDS: ERTAPENEM 1 GM in SODIUM CHLORIDE 0.9% 100 ML IV (15:05)
--- NOTE | 2024-05-21 15:16 | SUR.OPER ---
Supine on padded OR bed, head on pillow, arms secured on padded arm boards at <90 degrees abduction, legs uncrossed, safety belt at thigh, tape over blanket over lower legs.blankets under left hip and leg
[2024-05-21] MEDS: BUPIVACAINE 0.25% (PF) 30 ML, EPINEPHrine 0.15 MG INJ (15:24)
[2024-05-21] MEDS: OXYCODONE IR 5 MG TABLET PO ×2 (16:17→17:21)
[2024-05-21] MEDS: HYDROMORPHONE 1 MG INJ IV (16:20)
--- NOTE | 2024-05-21 18:09 | SUR.PHASEII ---
Patient in phase 2 awaiting a ride home. She is feeling good and her pain is controlled. Transportation is the issue that has held her in phase2.
== END 2024-05-21 18:34 | disposition home or self-care (01) ==
PROVIDERS: PCP Family Medicine; Referring Provider Orthopaedic Surgery Foot and Ankle Surgery; Visit Provider Orthopaedic Surgery Foot and Ankle Surgery
PROC: (CPT 20680; principal; 2024-05-21 14:00)
DX: T81.49XA Infection following a procedure, other surgical site, initial encounter (principal); B96.89 Other specified bacterial agents as the cause of diseases classified elsewhere
CPT/HCPCS: 20680 ×2; 81025; 87070; 87075; 87176; 87205; 87801; J0171; J1100; J1171; J1335; J1885; J2405; J2704; J3010

== ENCOUNTER → 2024-05-28 13:30 | Oncology outpatient (ONC) | payer OTHER, MEDICAID, SELFPAY ==
[2024-02-21 12:15] VITALS: BMI 33.9
[2024-05-22 13:43] VITALS: BP 154/93; PULSE 79; RESP 16; TEMP 36.3; O2SAT 99
[2024-05-22 14:06] LABS: Add Manual Diff / Slide Review NO; Basophils Absolute Auto 0 /uL (0-100); Basophils Percent Auto 0.4 % (0-2); Eosinophils Absolute Auto 0 /uL (0-450); Hematocrit 41.3 % (36-46); Hemoglobin 14.1 g/dL (12.0-16.0); Lymphocytes Absolute Auto 1100 /uL (1100-4500); Lymphocytes Percent Auto 9.2 % (25-40); Mean Corpuscular Hemoglobin 35.5 PG (26-34); Mean Corpuscular Volume 104.3 fL (80-100); Monocytes Absolute Auto 600 /uL (0-900); Monocytes Percent Auto 5.3 % (3-14); Neutrophils Absolute Auto 10300 /uL (1500-7000); Neutrophils Percent Auto 85.1 % (50-75); Platelet Count 240 X10^3/uL (150-400); Red Blood Cell Count 3.96 X10^6/uL (4.0-5.2); Red Cell Distribution Width 13.2 % (11.6-14.8); White Blood Cell Count 12.1 X10^3/uL (4.5-11.0)
[2024-05-22 14:19] LABS: Alanine Aminotransferase 26 IU/L (<35); Albumin 4.7 g/dL (3.5-5.0); Albumin Globulin Ratio 1.4 (1.0-2.8); Alkaline Phosphatase 87 U/L (38-126); Aspartate Aminotransferase 30 IU/L (14-36); BUN Creatinine Ratio 15.5 (6-22); Bilirubin Total 0.5 mg/dL (0.2-1.3); Blood Urea Nitrogen 9 mg/dL (7-17); Calcium 9.4 mg/dL (8.4-10.2); Carbon Dioxide 23 mmol/L (22-32); Chloride 105 mmol/L (98-107); Estimated Glomerular Filt Rate > 60 mL/min (>60); Globulin 3.3 g/dL (1.7-4.1); Glucose 94 mg/dL (70-100); HEMOLYSIS 35 (0-50); Potassium 4.3 mmol/L (3.4-5.1); Sodium 138 mmol/L (137-145)
[2024-05-22] MEDS: ERTAPENEM 1 GM in SODIUM CHLORIDE 0.9% 100 ML IV (14:25)
[2024-05-23] MEDS: ERTAPENEM 1 GM in SODIUM CHLORIDE 0.9% 100 ML IV (13:32)
--- NOTE | 2024-05-23 14:48 | PC.NURSE ---
Day shift: Pt here for infusion today with no IV access. IV placed in left hand by Oj Leger RN. IV infused without issue. Pt with no complaints as well. After discussion with Pt she has decided she would like to leave the IV in place for her next infusion tomorrow. IV site wrapped well with coban prior to leaving. Pt didn't want VS taken today.
[2024-05-24] MEDS: ERTAPENEM 1 GM in SODIUM CHLORIDE 0.9% 100 ML IV (13:44)
[2024-05-25] MEDS: ERTAPENEM 1 GM in SODIUM CHLORIDE 0.9% 100 ML IV (13:32)
[2024-05-26 13:23] VITALS: BP 147/99; PULSE 84; RESP 16; TEMP 36.3; O2SAT 100
[2024-05-26] MEDS: ERTAPENEM 1 GM in SODIUM CHLORIDE 0.9% 100 ML IV (14:31)
[2024-05-27 13:23] VITALS: BP 146/91; PULSE 86; RESP 16; TEMP 36.3; O2SAT 100
[2024-05-27 13:54] LABS: Add Manual Diff / Slide Review NO; Basophils Absolute Auto 100 /uL (0-100); Basophils Percent Auto 0.7 % (0-2); Eosinophils Absolute Auto 100 /uL (0-450); Eosinophils Percent Auto 1.4 % (2-4); Hematocrit 44.8 % (36-46); Hemoglobin 14.9 g/dL (12.0-16.0); Lymphocytes Absolute Auto 1900 /uL (1100-4500); Lymphocytes Percent Auto 24.2 % (25-40); Mean Corpuscular HGB Conc 33.3 % (30-36); Mean Corpuscular Hemoglobin 35.1 PG (26-34); Mean Corpuscular Volume 105.2 fL (80-100); Monocytes Absolute Auto 600 /uL (0-900); Neutrophils Absolute Auto 5300 /uL (1500-7000); Neutrophils Percent Auto 66.7 % (50-75); Platelet Count 268 X10^3/uL (150-400); Red Blood Cell Count 4.26 X10^6/uL (4.0-5.2); White Blood Cell Count 7.9 X10^3/uL (4.5-11.0)
[2024-05-27] MEDS: ERTAPENEM 1 GM in SODIUM CHLORIDE 0.9% 100 ML IV (13:56)
[2024-05-27 14:05] LABS: Alanine Aminotransferase 29 IU/L (<35); Albumin 4.8 g/dL (3.5-5.0); Albumin Globulin Ratio 1.3 (1.0-2.8); Alkaline Phosphatase 93 U/L (38-126); Aspartate Aminotransferase 31 IU/L (14-36); BUN Creatinine Ratio 12.5 (6-22); Bilirubin Total 0.6 mg/dL (0.2-1.3); Blood Urea Nitrogen 9 mg/dL (7-17); Calcium 9.7 mg/dL (8.4-10.2); Carbon Dioxide 27 mmol/L (22-32); Chloride 101 mmol/L (98-107); Estimated Glomerular Filt Rate > 60 mL/min (>60); Globulin 3.6 g/dL (1.7-4.1); Glucose 98 mg/dL (70-100); HEMOLYSIS 15 (0-50); Sodium 137 mmol/L (137-145); Total Protein 8.4 g/dL (6.3-8.2)
[2024-05-27 14:50] VITALS: BP 142/95; PULSE 79; RESP 16; TEMP 36; O2SAT 100
[2024-05-28 13:29] VITALS: BP 149/94; PULSE 78; RESP 18; TEMP 36.6; O2SAT 98
[2024-05-28] MEDS: ERTAPENEM 1 GM in SODIUM CHLORIDE 0.9% 100 ML IV (13:52)
== END ==
PROVIDERS: PCP Family Medicine; Referring Provider Internal Medicine Infectious Disease; Visit Provider Internal Medicine Infectious Disease
DX: M86.9 Osteomyelitis, unspecified (principal)
CPT/HCPCS: 36415; 80053; 85025; 96365; J1335

== ENCOUNTER → 2024-06-19 08:25 | Outpatient (CLI) | payer OTHER, MEDICAID, SELFPAY ==
[2024-02-21 12:15] VITALS: BMI 33.9
== END ==
PROVIDERS: PCP Family Medicine; Referring Provider Orthopaedic Surgery Foot and Ankle Surgery; Visit Provider Surgery
DX: S91.002A Unspecified open wound, left ankle, initial encounter (principal); T81.31XA Disruption of external operation (surgical) wound, not elsewhere classified, initial encounter; R60.0 Localized edema; L98.8 Other specified disorders of the skin and subcutaneous tissue; I10 Essential (primary) hypertension
CPT/HCPCS: 11042; 87070; 87075; 87077; 87186; 87205; 99203; 99213

== ENCOUNTER → 2024-06-23 14:41 | Outpatient (CLI) | payer OTHER, MEDICAID, SELFPAY ==
[2024-02-21 12:15] VITALS: BMI 33.9
== END ==
PROVIDERS: PCP Family Medicine; Referring Provider Orthopaedic Surgery Foot and Ankle Surgery; Visit Provider Surgery
DX: T81.89XA Other complications of procedures, not elsewhere classified, initial encounter (principal); S91.002A Unspecified open wound, left ankle, initial encounter; R60.0 Localized edema
CPT/HCPCS: 29581

== ENCOUNTER → 2024-06-25 15:43 | Outpatient (CLI) | payer OTHER, MEDICAID, SELFPAY ==
[2024-02-21 12:15] VITALS: BMI 33.9
== END ==
PROVIDERS: PCP Family Medicine; Referring Provider Family Medicine; Visit Provider Surgery
DX: T81.89XA Other complications of procedures, not elsewhere classified, initial encounter (principal); L98.8 Other specified disorders of the skin and subcutaneous tissue; S91.002A Unspecified open wound, left ankle, initial encounter; R60.0 Localized edema
CPT/HCPCS: 11042

== ENCOUNTER → 2024-06-30 14:46 | Outpatient (CLI) | payer OTHER, MEDICAID, SELFPAY ==
[2024-02-21 12:15] VITALS: BMI 33.9
== END ==
PROVIDERS: PCP Family Medicine; Referring Provider Orthopaedic Surgery Foot and Ankle Surgery; Visit Provider Surgery
DX: T81.89XA Other complications of procedures, not elsewhere classified, initial encounter (principal); L98.8 Other specified disorders of the skin and subcutaneous tissue; S91.002A Unspecified open wound, left ankle, initial encounter; R60.0 Localized edema
CPT/HCPCS: 29581

== ENCOUNTER → 2024-07-02 14:59 | Outpatient (CLI) | payer OTHER, MEDICAID, SELFPAY ==
[2024-02-21 12:15] VITALS: BMI 33.9
== END ==
PROVIDERS: PCP Family Medicine; Referring Provider Orthopaedic Surgery Foot and Ankle Surgery; Visit Provider Physician Assistant
DX: T81.31XA Disruption of external operation (surgical) wound, not elsewhere classified, initial encounter (principal); L98.8 Other specified disorders of the skin and subcutaneous tissue; S91.002A Unspecified open wound, left ankle, initial encounter; R60.0 Localized edema; I10 Essential (primary) hypertension
CPT/HCPCS: 11042; 99213

== ENCOUNTER → 2024-07-14 11:27 | Outpatient (CLI) | payer OTHER, MEDICAID, SELFPAY ==
[2024-02-21 12:15] VITALS: BMI 33.9
== END ==
PROVIDERS: PCP Family Medicine; Referring Provider Orthopaedic Surgery Foot and Ankle Surgery; Visit Provider Surgery
DX: T81.89XA Other complications of procedures, not elsewhere classified, initial encounter (principal); L98.8 Other specified disorders of the skin and subcutaneous tissue; S91.002A Unspecified open wound, left ankle, initial encounter; R60.0 Localized edema
CPT/HCPCS: 11042

== ENCOUNTER → 2024-07-21 14:22 | Outpatient (CLI) | payer OTHER, MEDICAID, SELFPAY ==
[2024-02-21 12:15] VITALS: BMI 33.9
== END ==
LOC: WC 14:23
PROVIDERS: PCP Family Medicine; Referring Provider Orthopaedic Surgery Foot and Ankle Surgery; Visit Provider Surgery
DX: T81.89XA Other complications of procedures, not elsewhere classified, initial encounter (principal); L98.8 Other specified disorders of the skin and subcutaneous tissue; S91.002A Unspecified open wound, left ankle, initial encounter; R60.0 Localized edema; I10 Essential (primary) hypertension
CPT/HCPCS: 11042; 99213

== ENCOUNTER → 2024-07-28 11:03 | Outpatient (CLI) | payer OTHER, MEDICAID, SELFPAY ==
[2024-02-21 12:15] VITALS: BMI 33.9
== END ==
PROVIDERS: PCP Family Medicine; Referring Provider Orthopaedic Surgery Foot and Ankle Surgery; Visit Provider Physician Assistant
DX: T81.89XA Other complications of procedures, not elsewhere classified, initial encounter (principal); L98.8 Other specified disorders of the skin and subcutaneous tissue; S91.002A Unspecified open wound, left ankle, initial encounter; R60.0 Localized edema
CPT/HCPCS: 11042; 99213

== ENCOUNTER → 2024-08-05 11:39 | Outpatient (CLI) | payer OTHER, MEDICAID, SELFPAY ==
[2024-02-21 12:15] VITALS: BMI 33.9
== END ==
PROVIDERS: PCP Family Medicine; Referring Provider Orthopaedic Surgery Foot and Ankle Surgery; Visit Provider Surgery
DX: T81.89XA Other complications of procedures, not elsewhere classified, initial encounter (principal); L98.8 Other specified disorders of the skin and subcutaneous tissue; S91.002A Unspecified open wound, left ankle, initial encounter; R60.0 Localized edema
CPT/HCPCS: 11042

== ENCOUNTER → 2024-08-12 14:39 | Outpatient (CLI) | payer OTHER, MEDICAID, SELFPAY ==
[2024-02-21 12:15] VITALS: BMI 33.9
== END ==
PROVIDERS: PCP Family Medicine; Referring Provider Family Medicine; Visit Provider Surgery
DX: T81.89XA Other complications of procedures, not elsewhere classified, initial encounter (principal); L98.8 Other specified disorders of the skin and subcutaneous tissue; S91.002A Unspecified open wound, left ankle, initial encounter; R60.0 Localized edema; I10 Essential (primary) hypertension
CPT/HCPCS: 29581; 99213

== ENCOUNTER → 2024-08-19 14:28 | Outpatient (CLI) | payer OTHER, MEDICAID, SELFPAY ==
[2024-02-21 12:15] VITALS: BMI 33.9
== END ==
LOC: WC 14:29
PROVIDERS: PCP Family Medicine; Referring Provider Orthopaedic Surgery Foot and Ankle Surgery; Visit Provider Surgery
DX: S91.002D Unspecified open wound, left ankle, subsequent encounter (principal); T81.31XD Disruption of external operation (surgical) wound, not elsewhere classified, subsequent encounter
CPT/HCPCS: 99213

== ENCOUNTER → 2024-09-25 11:32 | Outpatient (CLI) | payer OTHER, MEDICAID, SELFPAY ==
[2024-02-21 12:15] VITALS: BMI 33.9
== END ==
LOC: WC 11:33
PROVIDERS: PCP Family Medicine; Referring Provider Orthopaedic Surgery Foot and Ankle Surgery; Visit Provider Surgery
DX: L97.322 Non-pressure chronic ulcer of left ankle with fat layer exposed (principal); T81.89XA Other complications of procedures, not elsewhere classified, initial encounter; R60.0 Localized edema; I10 Essential (primary) hypertension
CPT/HCPCS: 11042; 87070; 87075; 87205; 99213

== ENCOUNTER → 2024-10-02 13:41 | Outpatient (CLI) | payer OTHER, MEDICAID, SELFPAY ==
[2024-02-21 12:15] VITALS: BMI 33.9
== END ==
PROVIDERS: PCP Family Medicine; Referring Provider Orthopaedic Surgery Foot and Ankle Surgery; Visit Provider Surgery
DX: T81.89XD Other complications of procedures, not elsewhere classified, subsequent encounter (principal); R60.0 Localized edema
CPT/HCPCS: 99213

== ENCOUNTER → 2024-10-09 14:00 | Outpatient (CLI) | payer OTHER, MEDICAID, SELFPAY ==
[2024-02-21 12:15] VITALS: BMI 33.9
--- NOTE | 2024-10-09 | OV.WND_ITS ---
PROGRESS NOTE DETAILS PATIENT NAME: KAJAL WADDELL PATIENT NUMBER: [id number] CLINICIAN: BRENNON GALARZA R.N. PATIENT DATE OF : 1975 PHYSICIAN / JOURNEYMAN WELDER: AMANDAMERYL PATIENT SUBJECTIVE CHIEF COMPLAINT THIS INFORMATION WAS OBTAINED FROM THE PATIENT. IT FEELS LIKE THERE IS SOME DRAINAGE. GENERAL NOTES SURGICAL WOUND ON LEFT ANKLE. ALLERGIES NO KNOWN ALLERGIES HPI THIS INFORMATION WAS OBTAINED FROM THE PATIENT. THE FOLLOWING HPI ELEMENTS WERE DOCUMENTED FOR THE PATIENT'S WOUND: LOCATION: L ANKLE DURATION: 09/22/24 CONTEXT: INFECTIOUS THE PATIENT IS A 49-YEAR-OLD FEMALE WITH HYPERTENSION WHO RETURNS TODAY FOR SURVEILLANCE OF AN ULCER ON THE LATERAL LEFT ANKLE THAT WAS NOTED TO BE HEALED AT HER LAST VISIT. SHE WAS PREVIOUSLY SEEN FOR TREATMENT OF A LEFT ANKLE SURGICAL WOUND DEHISCENCE. THE PATIENT UNDERWENT ORIF DISTAL FIBULA AND ANKLE JANUARY 09, 2024 AND DEVELOPED A WOUND INFECTION. SHE WAS TREATED WITH IV AND ORAL ANTIBIOTICS UNDER THE CARE OF DR. NOLASCO AND REMAINS ON AUGMENTIN. THE PATIENT UNDERWENT HARDWARE REMOVAL ON MAY 21, 2024. SUTURES WERE REMOVED AND THE SURGICAL WOUND DEHISCED. THE PATIENT IS RECEIVING DRESSING CHANGES WITH HYDROFERA BLUE AND DUODERM WITH TUBIGRIP FOR COMPRESSION. THE PATIENT DENIES HAVING ANY PAIN OR DISCOMFORT NOR HAS SHE HAD ANY FEVER OR CHILLS. SHE REPORTS A GOOD APPETITE AND DENIES HAVING ANY OTHER RECENT CHANGES IN HER OVERALL HEALTH. ABIS SHOW FLOW ADEQUATE FOR HEALING. ON EXAM TODAY THE ULCER REMAINS HEALED AND THERE WAS NO DRAINAGE ON THE DRESSING. LABS: 09/25/24: LIGHT GROWTH MIXED SKIN ARCHIE 06/19/24: CULTURE GREW STENOTROPHOMONAS MALTOPHILIA 05/27/24: WBC 7.9, HEMOGLOBIN 14.9, HCT 44.8, ELECTROLYTES NORMAL, GFR GREATER THAN 60, LFTS NORMAL 05/21/24: CULTURE NO GROWTH OBJECTIVE VITALS HEIGHT/LENGTH: 66 IN (167.64 CM), WEIGHT: 215.01 LBS (97.73 KGS), BMI: 34.7, TEMPERATURE: 97.8 ?F (36.56 ?C), PULSE: 86 BPM, RESPIRATORY RATE: 16 BREATHS/MIN, BLOOD PRESSURE: 158/96 MMHG, PULSE CALIM, KAJAL L [id number] 1975 OXIMETRY: 96 %. PHYSICAL EXAM CONSTITUTIONAL: VITAL SIGNS REVIEWED AND NOTED. WELL DEVELOPED, WELL NOURISHED, AND IN NO ACUTE DISTRESS. ALERT AND ORIENTED X3. RESPIRATORY: EVEN RESPIRATIONS WITHOUT USE OF ACCESSORY MUSCLES. NO INTERCOASTAL RETRACTIONS NOTED. EVEN AND NON LABORED RESPIRATION. INTEGUMENTARY (HAIR, SKIN): HEALED INCISION LATERAL LEFT ANKLE. NO SWELLING OR TENDERNESS. SEE WOUND ASSESSMENT. SKIN WARM AND DRY. NO RASHES. NEUROLOGICAL: SENSATION: SYMMETRIC FUNCTION BY INFORMAL OBSERVATION. PSYCHIATRIC: ORIENTATION TO TIME, PLACE AND PERSON: NORMAL AFFECT WITH NORMAL THOUGHT PATTERN. ASSESSMENT ACTIVE PROBLEMS ICD-10 (ENCOUNTER DIAGNOSIS) L97.322 - NON-PRESSURE CHRONIC ULCER OF LEFT ANKLE WITH FAT LAYER EXPOSED (ENCOUNTER DIAGNOSIS) R60.0 - LOCALIZED EDEMA GENERAL NOTES ULCER LATERAL LEFT ANKLE HEALED THE FOLLOWING FACTORS HAVE BEEN IDENTIFIED THAT MAY AFFECT WOUND HEALING: DEVITALIZED TISSUE BIOFILM INFECTION RECENT SURGERY GOALS: REMOVE DEVITALIZED TISSUE REMOVE AND PREVENT BIOFILM IDENTIFY AND TREAT INFECTION WOUND CLOSURE PLAN: DISCONTINUE DRESSING CHANGES, DAILY SKIN INSPECTIONS, FOLLOW UP AT WOUND CENTER NEEDED. PLAN ADDITIONAL ORDERS: COMPRESSION/EDEMA CONTROL ELEVATE LEG(S) ABOVE THE LEVEL OF THE HEART MUCH POSSIBLE. AVOID STANDING IN ONE POSITION FOR MORE THAN 10 MINUTES. AVOID SITTING WITH LEGS DOWN. DO NOT CROSS LEGS WHEN SITTING. APPLY SINGLE LAYER COMPRESSION TO THE AFFECTED LEG(S). WRAP: APPLY THE COMPRESSION WRAP FROM MID- FOOT TO KNEE MAKING SURE TO COVER THE HEEL. APPLY IN THE MORNING AND RE-WRAP NEEDED DURING THE DAY IF WRAP BECOMES LOOSE. REMOVE AT BEDTIME AND ELEVATE LEGS OR LIE DOWN. - MEDIGRIP E DIETARY TAKE VITAMIN C 1000MG BY MOUTH DAILY. TAKE ZINC 25MG BY MOUTH DAILY. INCREASE THE PROTEIN IN YOUR DIET. FOLLOW-UP APPOINTMENTS KAJAL WADDELL [id number] 1975 DISCHARGE FROM OUTPATIENT SERVICES. - PLEASE INSPECT HEALED WOUND DAILY FOR SIGNS OF BREAKDOWN, AND CALL CLINIC IF WOUND RE-OPENS. SCRIBING ATTESTATION I ATTEST, THE NURSE, THAT I SCRIBED THESE ORDERS FOR THE WOUND CARE PROVIDER. PROVIDER REVIEW AND ATTESTATION: REVIEWED AND EVALUATED LABS. REVIEWED HOSPITAL RECORDS. DISCUSSED THE PLAN OF CARE @ BEDSIDE WITH - THE PATIENT I AGREE AND ATTEST TO THE ABOVE INFORMATION PROVIDED FROM OTHER LICENSED PROFESSIONALS. ELECTRONIC SIGNATURE(S) SIGNED BY: DATE: MERYL PATEL MD 10/09/2024 15:47:55 (PT) ENTERED BY: MERYL PATEL MD ON 10/09/2024 15:42:09 (PT) KAJAL WADDELL [id number] 1975
== END ==
PROVIDERS: PCP Family Medicine; Referring Provider Orthopaedic Surgery Foot and Ankle Surgery; Visit Provider Surgery
DX: L97.322 Non-pressure chronic ulcer of left ankle with fat layer exposed (principal); R60.0 Localized edema
CPT/HCPCS: 99211; 99213